=== PATIENT | female | born 1975 | race Caucasian/White ===

== ENCOUNTER 2023-11-04 10:00 | Emergency (ER) | payer BC, SELFPAY ==
[2023-11-04 10:05] VITALS: BP 111/41; PULSE 58; RESP 16; TEMP 36.5; O2SAT 100; BMI 25.8
--- NOTE | 2023-11-04 10:24 | ED_ITS ---
HPI - Abdominal Pain General Chief Complaint: Abdominal Pain Stated Complaint: abd pain Time Seen by Provider: 11/04/23 10:15 Source: patient Mode of arrival: ambulatory Limitations: no limitations History of Present Illness HPI narrative: 47 years old patient presented to the emergency department complaining of left groin pain left lower quadrant pain since yesterday denies any systemic symptoms such as fever vomiting diarrhea. Pain is localized in the left groin MD elicited complaint: abdominal pain Pertinent past history: none Onset (ago): day(s) (1) Pain Consistency: constant Location: other (left groin) Severity: moderate Radiation: LLQ Migration to: no migration Exacerbating factors: nothing Relieving factors: nothing Related Data Allergies Allergy/AdvReac Type Severity Reaction Status Date / Time milk [MILK] AdvReac Unknown HIVES Verified 11/04/23 10:12 morphine [MORPHINE] AdvReac Unknown BURNING Verified 11/04/23 10:12 Review of Systems Eyes: Reports no additional eye complaints Cardiovascular: Reports no additional cardiovascular complaints Respiratory: Reports no additional respiratory complaints Gastrointestinal: Denies diarrhea, Denies nausea and Denies vomiting [facility] Past Medical History [facility] Narrative: Denies any major medical prior Social History Social History Advance Directives: No Advance Directives Information Provided: No Do you have a plan to hurt others: No Plan Physical Exam ED Vital Signs: Vital Signs - 24 hr 11/04/23 10:05 Temperature 97.7 F Pulse Rate 58 Respiratory Rate 16 Blood Pressure 111/41 L Pulse Oximetry 100 Oxygen Delivery Method Room Air BMI result Body Mass Index 25.8 Not toxic appearing comfortable in the stretcher Const General: cooperative Nutritional Appearance: well nourished [facility] Head: Yes normal to inspection Neck Neck: Yes normal visual inspection and Yes full ROM Chest Chest palpation & inspection: normal inspection of the chest Resp Effort & Inspection: normal respiratory effort Auscultation: clear to auscultation bilaterally Cardio Jugular venous distension: no JVD Rate: regular rate Rhythm: regular rhythm GI Inspection: Yes normal to inspection Palpation (GI): Soft to palpation, not firm, nontender and no guarding Skin General skin exam: no rashes or lesions noted Lesions: no lesions Rashes: no rashes Course Reevaluation(s) Reevaluation #1: Patient passed gas and now she is stating she has no more abdominal pain, she is requesting discharge, at this point will discharge the patient home Time: 10:35 Medical Decision Making Medical Decision Making [facility] Narrative: Patient presented with left lower quad abdominal pain left groin pain will obtain labs imaging reassess Differential Diagnosis Differential Diagnoses: The differential diagnosis associated with the presentation includes Differential diagnosis is broad including kidney stone/diverticulitis is/UTI/musculoskeletal pain Admission/Observation Consideration of admission/observation: Escalation of care including admission/observation considered Discharge Plan Discharge Clinical Impression: Abdominal pain Qualifiers: Abdominal location: left lower quadrant Qualified Code(s): R10.32 - Left lower quadrant pain Patient Disposition: Home, Self-Care Instructions: Abdominal Pain (ED) Additional Instructions: You stated that you feeling better and you ready to go home Print Language: Croatian
--- NOTE | 2023-11-04 10:41 | PC.NURSE ---
patent states that she passed gas and feels better, requesting to be d/c
[2023-11-04 10:45] VITALS: BP 97/44; PULSE 55; RESP 18; TEMP 36.3; O2SAT 100
== END 2023-11-04 10:46 | disposition home or self-care (01) ==
PROVIDERS: Emergency Provider Emergency Medicine; PCP Student in an Organized Health Care Education/Training Program
DX: R10.32 Left lower quadrant pain (principal)
CPT/HCPCS: 99282

== ENCOUNTER 2025-01-03 12:01 | Outpatient (REF) | payer BC, SELFPAY ==
[2025-01-03 14:54] LABS: Folate 10.8 ng/mL (> or = 4.0); Vitamin B12 965 pg/mL (200-900)
[2025-01-07 20:08] LABS: Vitamin D 25-OH, D2 <4 ng/mL; Vitamin D 25-OH, D3 57 ng/mL; Vitamin D 25-OH, Total 57 ng/mL (30-100)
== END 2025-01-03 12:02 | disposition home or self-care (01) ==
LOC: HO.LAB 12:01
PROVIDERS: PCP Student in an Organized Health Care Education/Training Program; Visit Provider Nurse Practitioner Family
DX: K59.04 Chronic idiopathic constipation (principal); K58.1 Irritable bowel syndrome with constipation; E55.9 Vitamin D deficiency, unspecified; R19.7 Diarrhea, unspecified; R10.9 Unspecified abdominal pain; Z13.21 Encounter for screening for nutritional disorder; Z79.899 Other long term (current) drug therapy
CPT/HCPCS: 36415; 82306; 82607; 82746; 86364

== ENCOUNTER 2025-01-03 12:01 | Outpatient (AMB) | payer BC, SELFPAY ==
--- OUTSIDE RECORDS SUMMARY | 2022-08-14 10:18 | XMS_ITS | Encounter Summary ---
Author Organization [facility] Address [address] [facility] [address] [place] [id number] Phone Care Team Providers Care Pricing Coordinator Name Role Phone Nikos Elkins MD Primary Care Provider [phone] Encounter Details Date Type Department Care Team (Late st Contact Info) Description 08/14/2022 10:18 AM EDT Hospital Encounter [facility] [address] [place] [id number] Lakshmi Banegas, SENIOR COMPENSATION ANALYST [address] [place] [address] [email or web address] Social History Tobacco Use Types Packs/Day Years Used Date Smoking Tobacco: Never Smokeless Tobacco: Never Education Answer Date Recorded Are you interested in more education? Not on polo e 07/02/2022 Are you concerned about learning? Not on file 07/02/2022 No 07/02/2022 No 07/02/2022 Digital Access Answer Date Recorded No 07/31/2022 No 07/31/2022 Reliable internet access at home? Not on file 07/31/2022 Device with a working camera? Not on file Comments Unknown Sex and Gender Information Value Date Recorded Sex Assigned at Not on file Legal Sex Female 9:26 AM EST Gender Identity Not on file Sexual Orientation Not on file documented as of this encounter Plan of Treatment Not on file documented as of this encounter Procedures Procedure Name Priority Date/Time Associated Diagnosis Comments XR ANKLE 3 OR MORE VIEWS (LEFT) Urgent/patient waiting 08/14/2022 10:31 AM EDT Ankle swelling, left documented in this encounter Results * XR ANKLE 3 OR MORE VIEWS (LEFT) (08/14/2022 10:31 AM EDT) Anatomical Region Laterality Modality Ankle Left Computed Radiogr aphy 08/14/2022 10:5 9 AM EDT Impressions 08/14/2022 11:00 AM EDT FINDINGS/IMPRESSION: There is a minimally displaced comminuted fracture of the distal fibula. There is moderate overlying soft tissue swelling. Normal alignment ankle mortise. Narrative 08/14/2022 11:00 AM EDT XR ANKLE 3 OR MORE VIEWS (LEFT) COMPARISON: None Procedure Note Lisa Pinto MD - 08/14/2022 XR ANKLE 3 OR MORE VIEWS (LEFT) COMPARISON: None IMPRESSION: FINDINGS/IMPRESSION: There is a minimally displaced comminuted fracture of the distal fibula.There is moderate overlying soft tissue swelling. Normal alignment anklemortise. us Lakshmi B Whitehill SENIOR COMPENSATION ANALYST IMG XR LOWER EXTREMITY Rosa l Result documented in this encounter Visit Diagnoses Not on filedocumented in this encounter Care Teams Pricing Coordinator Relationship Specialty Start Date End Date Nikos Elkins MD PCP - General Internal Medicine 08/14/22 documented as of this encounter Additional Source Comments The information contained in this document represents components of the legal health record. It is not the complete legal health record.[facility]
--- NOTE | 2025-01-03 12:04 | A.OFFVIS_ITS ---
Vital Signs 01/03/25 12:06 Height 5 ft 7 in Weight 158 lb 11.725 oz BMI 24.9 BP 89/44 L Blood Pressure Location Lt brachial Position Sitting Pulse 70 Intake Visit Reasons: TELEMEDICINE PHYSICIAN, chronic abd pain + constipation Intake Note: Denis presents in the office as a new patient for constipation and pains in the stomach. CC: States that her colo came back normal - she states that she has acid reflux as well. She states she moved from [place] and needs to find new care. Allergies milk (MILK) Adverse Reaction (Unknown, Verified 01/03/25 12:06) HIVES morphine (MORPHINE) Adverse Reaction (Unknown, Verified 01/03/25 12:06) BURNING Medication List - Last Reconciled 01/03/25 by DAO Rosario bupropion HCl XL 300 mg PO DAILY estradiol 1 mg PO DAILY lamotrigine 200 mg PO DAILY linaclotide (Linzess) 72 mcg PO DAILY omeprazole 40 mg PO DAILY topiramate 50 mg PO BEDTIME valacyclovir 500 mg PO DAILY zolpidem ER 12.5 mg PO BEDTIME PRN HPI HPI TELEMEDICINE PHYSICIAN, chronic abd pain + constipation: Details: 49-year-old female with past medical history of status post sleeve gastrectomy, depression, anxiety, insomnia, IBS with constipation and is here for initial consultation. Patient was sent to us by her PCP. Previously patient was seen by GI specialty. Had colonoscopy that was normal. Patient reports that he is currently taking Linzess 145 mcg. Patient reports that she does not take it every day as sometimes she will have cramping that she describes tightness in her abdomen. Patient also reports abdominal bloating. Currently she reports acid reflux and epigastric discomfort. Patient was started on a new medication. Patient was started on omeprazole daily. Patient denies any dyspepsia, dysp hagia or odynophagia. Denies melena, hematochezia, unintentional weight loss or ribbon like stools. [facility] Medical History (Updated 01/07/25 @ 10:46 by DAO Rosario) Chronic idiopathic constipation Irritable bowel syndrome with constipation Surgical History History of esophagogastroduodenoscopy (EGD) History of colonoscopy Review of Systems Const Denies weight gain and Denies weight loss ENT Reports no additional complaints, Denies dysphagia and Denies odynophagia Card Reports no additional complaints Resp Reports no additional complaints GI Reports abdominal pain, Denies belching, Denies melena, Denies bloating, Denies change in bowel habits, Reports constipation, Reports GI cramping, Denies dysphagia, Denies excessive flatus, Denies dyspepsia, Reports heartburn (Occasional), Denies diarrhea, Denies loose stools, Denies nausea, Denies odynophagia and Denies vomiting Reports no additional complaints Musc Reports no additional complaints Neuro Reports no additional complaints Psych Reports no additional complaints Endo Reports no additional complaints Physical Exam Vital Signs: Last Vital Signs Pulse 70 01/03/25 12:06 BP 89/44 L 01/03/25 12:06 BMI result Body Mass Index 24.9 Const General: healthy appearing, no acute distress and well developed Nutritional Appearance: well nourished Orientation/consciousness: patient oriented x3 Resp Effort & Inspection: normal respiratory effort, able to speak in complete sentences, no tracheal deviation and symmetric chest movement Auscultation: clear to auscultation bilaterally Cardio Rate: regular rate GI Inspection: Yes normal to inspection and No distended Palpation (GI): Soft to palpation, not firm, nontender and No hepatosplenomegaly present Auscultation: normal bowel sounds General: Yes no CVA tenderness Back/Spine/Pelvis Back: no CVA tenderness Skin General skin exam: elasticity normal, turgor normal and dry skin Neuro General: patient oriented x3 Psych Appearance: grossly normal Mental Status: mental status grossly normal Assessment & Plan Assessment & Plan (1) Chronic idiopathic constipation: Code(s): K59.04 - Chronic idiopathic constipation Category: Medical (2) Irritable bowel syndrome with constipation: Code(s): K58.1 - Irritable bowel syndrome with constipation Category: Medical Plan Patient will hold Linzess 145 mcg and she will try to take Linzess 72 mcg daily. Long history of IBS with constipation and CIC since her gastric sleeve. Will check transglutaminase, vitamin B12, folate, vitamin-D level. Patient will continue taking omeprazole daily. Avoid dietary triggers and late night snacking. Staying upright for minimal 3 hours after meals discussed with patient patient will follow-up in the office in 6 months. She will call us if she will have any GI concerning symptoms. Patient is agreeable to this plan and verbalizes understanding of instructions. She was given the opportunity to ask questions and all questions answered. Thank you for allowing me to participate in her care Orders: Orders Vitamin B12 and Folate 01/03/25 R19.7 - Diarrhea, unspecified Transglutaminase IgA 01/03/25 R10.9 - Unspecified abdominal pain Vitamin D 25-OH (D2 and D3) 01/03/25 E55.9 - Vitamin D deficiency, unspecified Medications: New linaclotide (Linzess) 72 mcg PO DAILY 30 caps 2RF Coding Level of Care Code New Pt Level 3 (13192) Diagnoses Chronic idiopathic constipation K59.04 Irritable bowel syndrome with constipation K58.1 Time Spent (min) 40 Comment 30 minutes spent with patient and additional 10 minutes spent reviewing her records
[2025-01-03 12:06] VITALS: BP 89/44; PULSE 70; BMI 24.9
--- OUTSIDE RECORDS SUMMARY | 2025-01-03 13:33 | XMS_ITS | Data Portability ---
Author Organization [place] [facility] Vaishnavi Vasques [place] Address [address] [place] [address] Care Team Providers Care Live In Housekeeper Name Role Phone JEOVANNY SNOWDEN Primary Care Provider Assessment Encounter Date Assessment Date Assessment LastModified by Organization Details LastModified Time 12/23/2022 12/23/2022 Symptomatic left knee osteoarthritis with recent exacerbation. She does have a chronic appearing ACL tear. Chronic degenerative medial meniscus tear. We reviewed the natural history of osteoarthritis. The patient understands that symptoms may progress over time requiring further intervention. We discussed in detail available treatment options. We discussed activity modification, especially avoiding impact type activities. We discussed the need for an ongoing maintenance flexibility and strengthening program. This should involve the core musculature, the hip, as well as the quadriceps and hamstrings. Intermittent icing 20 minutes off 3 to 4 times a day with the skin protected may be helpful for control of swelling. Qwaj-svq-[id number] anti-inflammatory medications with appropriate GI precautions or Tylenol may be helpful in controlling intermittent symptoms of pain. An assistive device such as a cane may be helpful in unloading the joint. We also discussed other interventions including therapeutic injections. We discussed varieties of injections including cortisone, viscosupplementat ion, and PRP. We also discussed the possibility of surgical intervention if symptoms persist. We discussed arthroscopic intervention as well as total knee arthroplasty. We discussed given her significant degree of arthritis she would be a poor surgical candidate for any arthroscopic procedure including a meniscectomy or ACL reconstruction. I think she would benefit from beginning physical therapy. She was given a referral for this today. Additionally she elected proceed with a cortisone injection today. She tolerated this well. Postinjection instructions reviewed. An order was also placed for a medial harness preparer brace and the patient was measured today in office. We will contact her pending authorization approval. Icing protocol reviewed. Advise she can use anti-inflammatori es and/or Tylenol for relief as needed with appropriate over the counter dosing and GI precautions. Questions invited and answered. Patient verbalizes understanding and agreement with plan. Not available 12/30/2022 09:09:53 02/06/2023 02/06/2023 Symptomatic left knee osteoarthritis, advanced medial compartment, with chronic appearing ACL tear and chronic degenerative medial meniscus tear. She was fit in her medial harness preparer brace today, is going to trial this and see how she responds. Advised I continue to recommend physical therapy, she is going to work on setting up an appointment. Venkata protocol reviewed. She can continue pool exercises as tolerated, letting symptoms be her guide. We will see her back in about 4 weeks for repeat evaluation. Questions invited and answered. Patient verbalizes understanding and agreement with plan. PRIOR : Symptomatic left knee osteoarthritis with recent exacerbation. She does have a chronic appearing ACL tear. Chronic degenerative medial meniscus tear. We discussed given her significant degree of arthritis she would be a poor surgical candidate for any arthroscopic procedure including a meniscectomy or ACL reconstruction. I think she would benefit from beginning physical therapy. She was given a referral for this today. Additionally she elected proceed with a cortisone injection today. She tolerated this well. Postinjection instructions reviewed. An order was also placed for a medial harness preparer brace and the patient was measured today in office. We will contact her pending authorization approval. Icing protocol reviewed. Advise she can use anti-inflammatori es and/or Tylenol for relief as needed with appropriate over the counter dosing and GI precautions. Questions invited and answered. Patient verbalizes understanding and agreement with plan. Not available 02/06/2023 14:29:58 03/13/2023 03/13/2023 Symptomatic left knee osteoarthritis. She has a chronic appearing ACL tear and degenerative medial meniscus tear. She is deriving some improvement with the medial harness preparer brace but still symptomatic enough where she needs additional intervention. She has tried a cortisone injection. We will request authorization for viscosupplementat ion. She is a good candidate for this. At her age we are trying to avoid a joint replacement. She will continue with home exercise program. She will make a decision as to whether or not she wants to continue to physical therapy, she admits today that after therapy she is more sore, she has been doing some pool workouts which actually have been feeling better. She may wish to just transition to that. Greater than 20 minutes was spent with the encounter today, including face to face time with the patient, documentation, review of records/imaging if applicable, and coordination of care. PRIOR CATY 02/06/2023: Symptomatic left knee osteoarthritis, advanced medial compartment, with chronic appearing ACL tear and chronic degenerative medial meniscus tear. She was fit in her medial harness preparer brace today, is going to trial this and see how she responds. Advised I continue to recommend physical therapy, she is going to work on setting up an appointment. Icing protocol reviewed. She can continue pool exercises as tolerated, letting symptoms be her guide. We will see her back in about 4 weeks for repeat evaluation. PRIOR : Symptomatic left knee osteoarthritis with recent exacerbation. She does have a chronic appearing ACL tear. Chronic degenerative medial meniscus tear. We discussed given her significant degree of arthritis she would be a poor surgical candidate for any arthroscopic procedure including a meniscectomy or ACL reconstruction. I think she would benefit from beginning physical therapy. She was given a referral for this today. Additionally she elected proceed with a cortisone injection today. She tolerated this well. Postinjection instructions reviewed. An order was also placed for a medial harness preparer brace and the patient was measured today in office. We will contact her pending authorization approval. Icing protocol reviewed. Advise she can use anti-inflammatori es and/or Tylenol for relief as needed with appropriate over the counter dosing and GI precautions. Not available 03/13/2023 14:31:12 04/04/2023 04/04/2023 Symptomatic left knee osteoarthritis in the center of chronic ACL tear and degenerative medial meniscus tear. We proceeded with the Durolane injection today. She tolerated this well. Postinjection instructions reviewed. Icing protocol reviewed. She will continue to use her medial harness preparer brace as needed for comfort and support with activity. She will follow-up on an as-needed basis. Questions invited and answered. Patient verbalizes understanding and agreement with plan. PRIOR : Symptomatic left knee osteoarthritis. She has a chronic appearing ACL tear and degenerative medial meniscus tear. She is deriving some improvement with the medial harness preparer brace but still symptomatic enough where she needs additional intervention. She has tried a cortisone injection. We will request authorization for viscosupplementat lavon. She is a good candidate for this. At her age we are trying to avoid a joint replacement. She will continue with home exercise program. She will make a decision as to whether or not she wants to continue to physical therapy, she admits today that after therapy she is more sore, she has been doing some pool workouts which actually have been feeling better. She may wish to just transition to that. PRIOR CATY 02/06/2023: Symptomatic left knee osteoarthritis, advanced medial compartment, with chronic appearing ACL tear and chronic degenerative medial meniscus tear. She was fit in her medial harness preparer brace today, is going to trial this and see how she responds. Advised I continue to recommend physical therapy, she is going to work on setting up an appointment. Venkata protocol reviewed. She can continue pool exercises as tolerated, letting symptoms be her guide. We will see her back in about 4 weeks for repeat evaluation. PRIOR : Symptomatic left knee osteoarthritis with recent exacerbation. She does have a chronic appearing ACL tear. Chronic degenerative medial meniscus tear. We discussed given her significant degree of arthritis she would be a poor surgical candidate for any arthroscopic procedure including a meniscectomy or ACL reconstruction. I think she would benefit from beginning physical therapy. She was given a referral for this today. Additionally she elected proceed with a cortisone injection today. She tolerated this well. Postinjection instructions reviewed. An order was also placed for a medial harness preparer brace and the patient was measured today in office. We will contact her pending authorization approval. Venkata protocol reviewed. Advise she can use anti-inflammatori es and/or Tylenol for relief as needed with appropriate over the counter dosing and GI precautions. Not available 04/04/2023 14:53:04 Plan of Treatment Reminders Order Date Submit Date Provider Last Modified By Organization Details Last Modified Time Details Appointments None recorded. Lab None recorded. Referral None recorded. Procedures intra-artic ular injection, knee, viscosupple ment (PROC) - Please check insurance for [employer] Author[employer]ati on, insurance preferred med. Knee Laterality: Left 2023 024 [email or web address] Not available 4 14:49:28 Surgeries None recorded. Imaging XR, knee, 4 or more view 2022 023 [email or web address] [facility], [address], [place], [address], 3 17:38:09 Medication Orders Durolane 60 mg/3 mL intra-artic ular syringe 2023 024 [email or web address] [id number], [address] [place], [address], 4 15:46:02 Kenalog 40 mg/mL suspension for injection 2022 023 [id number], [address] [place], [address], 4 14:15:28 lidocaine (PF) 100 mg/5 mL (2 %) injection syringe 2022 023 [id number], [address] [place], [address], 4 14:15:30 Patient TargetsNo targets recorded. Patient InstructionsNo instructions recorded. Reason for Referral None Reported. Problems Name Problem SNOMED Code Status Onset Date Resolution Date Notes Provider Name and Address Organization Details Recorded Time Osteoarthri tis of left knee joint 9774959388183 09 Active 2022 DENNISE MCCANN PA-C [address], [facility] [place], [address], [place] - [facility], P 3 18:35:33 Pain of left knee joint 0755848340984 07 Active 2022 DENNISE MCCANN PA-C [address], [place], [address], [place] [facility], [facility] 3 18:35:33 Complete tear, knee, anterior cruciate ligament 479942134 Active 2023 Tuan Su MD [address], [place], [address], [facility] 4 15:05:02 Problem Notes None recorded. Procedures Surgical History Date Name Laterality Status Provider Name and Address Organization Details Recorded Time 04/04/19 24 Durolane Knee Inj completed DENNISE MCCANN PA-C [address], [place], [address], [place] [facility] 04/04/2023 14:52:22 12/24/19 23 SAB Knee Inj w/US completed DENNISE MCCANN PA-C [address], [place], [address], [facility], P 12/23/2022 17:18:41 Appendectomy completed Hali Galicia [facility], P 12/23/2022 13:30:12 cholecystectomy completed Hali Galicia [facility], P 12/23/2022 13:30:27 Imaging Results None recorded. Procedure Notes None recorded. Medical Equipment None Reported. Allergies Allergen ID Allergen Name Allergen Category Reaction Reaction Severity Criticality Documentation Date Start Date Code Code System Note Provider Name and Address Organization Details Recorded Time 9307 morphine medicatio n Not available Not available Not available 12/23/2022 7052 RxNorm Hali Galicia null, [facility], P 3 13:18:50 Medications Name Sig Start Date Stop Date Status Note LastModified by Organization Details LastModified Time venlafaxine ER 37.5 mg capsule,ext ended release 24 hr TAKE 1 CAPSULE BY MOUTH EVERY DAY 12/23 completed Not Available Not Available Not Available ibuprofen 800 mg tablet TAKE 1 TABLET BY MOUTH THREE TIMES A DAY NEEDED FOR PAIN WC 12/23 completed Not Available Not Available Not Available hydrocodone 5 mg-acetamin ophen 325 mg tablet TAKE 1 TABLET BY MOUTH EVERY 6 HOURS NEEDED FOR SEVERE PAIN 12/23 completed Not Available Not Available Not Available phentermine 15 mg capsule TAKE 1 CAPSULE BY MOUTH ONCE DAILY BEFORE BREAKFAST active Not Available Not Available No t Available tramadol 50 mg tablet TAKE ONE TABLET BY MOUTH ONCE A DAY NEEDED FOR PAIN OR SEVERE PAIN (7-10). 12/23 completed Not Available Not Available Not Available Kenalog 40 mg/mL suspension for injection Take 1.5 mL by injection route. 03/13 completed Not Available Not Available Not Available estradiol 1 mg tablet TAKE 1 TABLET BY MOUTH EVERY DAY active Not Available Not Available No t Available meclizine 25 mg tablet TAKE 1 TABLET BY MOUTH THREE TIMES A DAY NEEDED FOR DIZZINESS 12/23 completed Not Available Not Available Not Available acyclovir 5 % topical ointment 12/23 completed Not Available Not Available Not Available estradiol 0.01% (0.1 mg/gram) vaginal cream 12/23 completed Not Available Not Available Not Available amoxicillin 875 mg-potassiu m clavulanate 125 mg tablet TAKE 1 TABLET BY MOUTH TWICE A DAY FOR 7 DAYS 12/23 completed Not Available Not Available Not Available neomycin-po lymyxin-hyd rocort 3.5 mg-10,000 unit/mL-1 % ear drops,susp ADMINISTE R 3 DROPS INTO THE LEFT EAR 3 (THREE) TIMES A DAY FOR 10 DAYS FOR 7-10 DAYS. 12/23 completed Not Available Not Available Not Available escitalopra m 10 mg tablet TAKE 1 TABLET BY MOUTH EVERY DAY 12/23 completed Not Available Not Available Not Available cyclobenzap rine 5 mg tablet 12/23 completed Not Available Not Available Not Available bupropion HCl XL 300 mg 24 hr tablet, extended release TAKE 1 TABLET BY MOUTH EVERY DAY active Not Available Not Available No t Available zolpidem ER 12.5 mg tablet,exte nded release,mul tiphase TAKE 1 TABLET BY MOUTH EVERY NIGHT AT BEDTIME NEEDED FOR SLEEP active Not Available Not Available No t Available lidocaine (PF) 100 mg/5 mL (2 %) injection syringe Take 3 mL by injection route. 03/13 completed Not Available Not Available Not Available Durolane 60 mg/3 mL intra-artic ular syringe Take 60 mg by intraarti cular route. 2023 active Not Available Not Available Not Avai lable BinaxNOW COVID-19 Ag Self Test kit 12/23 completed Not Available Not Available Not Available Vitals Date Recorded Body height Body mass index (BMI) Body weight Provider Name and Address Organization Details Last Updated DateTime 03/13/2023 170.18 cm 28.3 kg/m2 [address] [place] - [facility], [facility] 03/13/2023 14:15:36 Date Recorded Body height Body mass index (BMI) Body weight Provider Name and Address Organization Details Last Updated DateTime 04/04/2023 170.18 cm 28.2 kg/m2 [address]194.[address] [place] - [facility] 04/04/2023 14:43:50 Date Recorded Body height Body mass index (BMI) Body weight Provider Name and Address Organization Details Last Updated DateTime 12/23/2022 170.18 cm 28.2 kg/m2 95113.63 g Hali Galicia [place] - [facility], [facility] 12/23/2022 13:29:16 Social History None recorded. Functional Status Question Answer Note LastModified by Organizat ion Details LastModified Time Do you use any illicit or recreational drugs? No [email or web address] Information not available 12/23/2022 Do you or have you ever used any other forms of tobacco or nicotine? No [email or web address] Information not available 12/23/2022 What is your level of alcohol consumption? Occasional [email or web address] Information not available 12/23/2022 Mental Status None recorded. Family History Nothing Reported. Medical History No medical history recorded. Gynecological HistoryNo gynecological history recorded. Obstetrics History GPAL:G 0 P 0 0 0 0 Past Encounters Encounter ID Performer Location Encounter Start Date Encounter Closed Date Diagnosis/Indication Diagnosis SNOMED-CT Code Diagnosis ICD10 Code Diagnosis IMO Codes Diagnosis Note [id number] MD JANI Singh [address] [place] [address] [place] [address] 12/23/2022 13:04:23 12/23/2022 14:44:31 Pain of left knee joint [id number] 43686 M25.562 Osteoarthr itis of left knee joint 9413672022 81345 M17.12 [id number] JUAN PABLO SIERRA [address] [place] [address] [address] [place] [address] 02/06/2023 12:57:20 02/06/2023 13:53:41 Osteoarthritis of left knee joint 5873077098 66846 M17.12 Pain of le ft knee joint 0299507797 57597 M25.562 [id number] MD JANI Singh [address] [facility] [address] [place] [address] 03/13/2023 14:09:30 03/13/2023 14:29:39 Osteoarthritis of left knee joint 1009212690 26393 M17.12 Pain of le ft knee joint 3050002850 46081 M25.562 Complete t ear, knee, anterior cruciate ligament 969892123 S83.512D chronic [id number] JUAN PABLO SIERRA [address] [place] [address] [place] [address] 04/04/2023 14:37:19 04/04/2023 14:50:20 Osteoarthritis of left knee joint 1773516296 57046 M17.12 Pain of le ft knee joint 1621705035 83852 M25.562 Complete t ear, knee, anterior cruciate ligament 270752378 S83.512D chronic Health Concerns Section Related Observation LastModified by Organization Detai ls LastModified Time None Recorded Concern Status LastModified by Organization Details LastModified Time None Recorded Advance Directives Directive None Recorded Payers Insurance Date Sequence Insurance Name Policy Number Policy Bales Covered Member ID Bales Member ID Guarantor Name 12/16/2022 1 [place]: [facility] [place] [id number] Denis Hart [id number] Denis Hart 12/16/2022 1 [facility] [facility] [place] [id number] Denis Hart [id number] Denis Hart Notes Date Note Type Note Provider Name and Address Organization Details Recorded Time 3 text/html ROS as noted in the HPI Pleasant, 47-year-old female presents to the office today for evaluation of left knee pain. She reports it began following injury of this year. She reports she tripped over a small cone on the ground and heard a pop followed by immediate pain and loss of swelling throughout her lower extremity. She unfortunately also suffered an ankle fracture about a week which became the focus of her orthopedic care. She reports the knee has been bothersome ever since and notes significant pain, swelling and recurrent instability. She repeatedly expressed her concerns to her previous doctor who ordered an MRI which prompted her visit today. Her biggest concern is instability, notes that the knee feels weak and gives out on her on an almost daily basis. Worse with deep flexion. Swelling has come down a lot but remains persistent. She did have a lower extremity ultrasound to rule out blood clot. She has not done much in the way of treatment, reports intermittent icing and resting. She has not had any physical therapy. Previous injury to this knee many years ago in her childhood. No significant medical history reported. Never smoker. Tuan Su MD [address], [place], [address], [place] [facility] 12/30/2022 09:09:56 3 text/html ROS as noted in the HPI Denis presents to the office today with her for reevaluation of her left knee pain in the setting of advanced arthritis, chronic medial meniscus tear and chronic ACL degeneration. She got about 2 weeks relief with previous cortisone injection. She has been unable to start physical therapy due to scheduling issues. She continues to have persistent pain and swelling, though this has improved since her initial visit. She reports that stairs are especially uncomfortable. She has had recurrence episodes of instability. 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 She has been doing some pool workouts since they do not put any stress on her knee and has been tolerating these okay. Denies radiation of pain outside the knee joint. Denies numbness or tingling. PRIOR:Pleasant, 47-year-old female presents to the office today for evaluation of left knee pain. She reports it began following injury of this year. She reports she tripped over a small cone on the ground and heard a pop followed by immediate pain and loss of swelling throughout her lower extremity. She unfortunately also suffered an ankle fracture about a week which became the focus of her orthopedic care. She reports the knee has been bothersome ever since and notes significant pain, swelling and recurrent instability. She repeatedly expressed her concerns to her previous doctor who ordered an MRI which prompted her visit today. Her biggest concern is instability, notes that the knee feels weak and gives out on her on an almost daily basis. Worse with deep flexion. Swelling has come down a lot but remains persistent. She did have a lower extremity ultrasound to rule out blood clot. She has not done much in the way of treatment, reports intermittent icing and resting. She has not had any physical therapy. Previous injury to this knee many years ago in her childhood. No significant medical history reported. Never smoker. DENNISE MCCANN PA-C [address], [place], [address], [place] [facility] 02/06/2023 14:30:38 4 text/html ROS as noted in the HPI Denis returns for reevaluation of her left knee. She did receive the medial harness preparer brace at the last visit and reports she has been wearing it for the most part. It seems to help when she wears it. She still notes a bit of swelling. Pain is predominantly over the medial knee. She is also had some occasional posterior knee discomfort as well as occasional snapping in physical therapy. She continues in therapy twice a week. She is not sure if the therapy really is helping, sometimes more sore when she leaves treatment. 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 She got about 2 weeks relief with previous cortisone injection. She has been unable to start physical therapy due to scheduling issues. She continues to have persistent pain and swelling, though this has improved since her initial visit. She reports that stairs are especially uncomfortable. She has had recurrence episodes of instability. 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 She has been doing some pool workouts since they do not put any stress on her knee and has been tolerating these okay. Denies radiation of pain outside the knee joint. Denies numbness or tingling.PRIOR:Pleasant, 47-year-old female presents to the office today for evaluation of left knee pain. She reports it began following injury of this year. She reports she tripped over a small cone on the ground and heard a pop followed by immediate pain and loss of swelling throughout her lower extremity. She unfortunately also suffered an ankle fracture about a week which became the focus of her orthopedic care. She reports the knee has been bothersome ever since and notes significant pain, swelling and recurrent instability. She repeatedly expressed her concerns to her previous doctor who ordered an MRI which prompted her visit today. Her biggest concern is instability, notes that the knee feels weak and gives out on her on an almost daily basis. Worse with deep flexion. Swelling has come down a lot but remains persistent. She did have a lower extremity ultrasound to rule out blood clot. She has not done much in the way of treatment, reports intermittent icing and resting. She has not had any physical therapy. Previous injury to this knee many years ago in her childhood. No significant medical history reported. Never smoker. Tuan Su MD [address], [place], [id number], [place] [facility] 03/13/2023 15:05:06 4 text/html ROS as noted in the HPI Patient returns to the office today for follow-up of her left knee. She reports minimal interval change in her symptoms. She is here for viscosupplementation injection and wishes to proceed with this today. She offers no new complaints. Denies any recent swelling, radiation of pain or numbness or tingling. She has been using her medial harness preparer brace for activity which is helpful. PRIOR:Denis returns for reevaluation of her left knee. She did receive the medial harness preparer brace at the last visit and reports she has been wearing it for the most part. It seems to help when she wears it. She still notes a bit of swelling. Pain is predominantly over the medial knee. She is also had some occasional posterior knee discomfort as well as occasional snapping in physical therapy. She continues in therapy twice a week. She is not sure if the therapy really is helping, sometimes more sore when she leaves treatment. 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 She got about 2 weeks relief with previous cortisone injection. She has been unable to start physical therapy due to scheduling issues. She continues to have persistent pain and swelling, though this has improved since her initial visit. She reports that stairs are especially uncomfortable. She has had recurrence episodes of instability. 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 She has been doing some pool workouts since they do not put any stress on her knee and has been tolerating these okay. Denies radiation of pain outside the knee joint. Denies numbness or tingling.PRIOR:Pleasant, 47-year-old female presents to the office today for evaluation of left knee pain. She reports it began following injury of this year. She reports she tripped over a small cone on the ground and heard a pop followed by immediate pain and loss of swelling throughout her lower extremity. She unfortunately also suffered an ankle fracture about a week which became the focus of her orthopedic care. She reports the knee has been bothersome ever since and notes significant pain, swelling and recurrent instability. She repeatedly expressed her concerns to her previous doctor who ordered an MRI which prompted her visit today. Her biggest concern is instability, notes that the knee feels weak and gives out on her on an almost daily basis. Worse with deep flexion. Swelling has come down a lot but remains persistent. She did have a lower extremity ultrasound to rule out blood clot. She has not done much in the way of treatment, reports intermittent icing and resting. She has not had any physical therapy. Previous injury to this knee many years ago in her childhood. No significant medical history reported. Never smoker. DENNISE MCCANN PA-C [address], [place], [id number], [place] - [facility] 04/04/2023 14:53:49 OBGyn Episode No OBEpisode recorded.
--- OUTSIDE RECORDS SUMMARY | 2025-01-03 13:34 | XMS_ITS | Encounter Summary ---
Author Organization [facility] Address [address] [place] [address] Care Team Providers Care Forestry Adviser Name Role Phone Nikos Elkins MD Primary Care Provider +- [phone] Encounter Details Date Type Department Care Team (Late st Contact Info) Description 06/17/2024 Ancillary Orders [facility] Radiology, [facility] (Diag Rad) [address] [place] [address] ProviderGino MD [address] [place] [address] Social History Tobacco Use Types Packs/Day Years Used Date Smoking Tobacco: Never Assessed Comments Unknown Sex and Gender Information Value Date Recorded Sex Assigned at Not on file Legal Sex Female 2:10 PM EST Gender Identity Not on file Sexual Orientation Not on file documented as of this encounter Plan of Treatment Not on file documented as of this encounter Results * MG TRANSFER OF OUTSIDE FILMS (2021 12:00 AM EDT) Narrative IMAGING - 06/17/2024 7:35 AM EDT This order has been auto-finalized and does not contain a result. us Gino Provider MD [facility] Final Resu lt IMAGING documented in this encounter Visit Diagnoses Not on filedocumented in this encounter Care Teams Forestry Adviser Relationship Specialty Start Date End Date Nikos Elkins MD [facility] [address] [place] [id number] PCP - General 03/11/19 documented as of this encounter
--- OUTSIDE RECORDS SUMMARY | 2025-01-03 13:34 | XMS_ITS ---
Author Name [facility] Organization Unknown Results Test Name/Text Value Interpretation Date Range Source Citation Ref Lab Test The technical components of this case were performed at [facility], [address] [place] [address], CLIA ID Number-[id number] 1 12/04/2024 [facility] HBV surface Ab Ser Ql IA Positive Abnormal 10/09/2024 - [facility] HBV surface Ab SerPl IA-aCnc 26.2 mIU/mL 10/09/2024 [facility] Est. average glucose Bld gHb Est-mCnc 105.0 mg/dL 10/08/2024 [facility] HbA1c MFr Bld 5.3 % 10/08/2024 - 5.7 [facility] Creat SerPl-mCnc 0.88 mg/dL 10/08/2024 0.55 - 1.02 [facility] AST SerPl-cCnc 25.0 unit/L 10/08/2024 - 34 CT [facility] Anion Gap SerPl Calc-sCnc 9.0 10/08/2024 5 - 14 [facility] Calcium SerPl-mCnc 9.0 mg/dL 10/08/2024 8.7 - 10.4 [facility] Potassium SerPl-sCnc 4.4 mmol/L 10/08/2024 3.5 - 5.1 [facility] Sodium SerPl-sCnc 142.0 mmol/L 10/08/2024 136 - 14 5 [facility] BUN SerPl-mCnc 13.0 mg/dL 10/08/2024 9 - 23 [facility] BUN/Creat SerPl 14.8 10/08/2024 12 - 20 [facility] Globulin Ser Calc-mCnc 2.0 g/dL Below low normal 10/08/2024 2.3 - 3.5 [facility] ALP SerPl-cCnc 56.0 unit/L 10/08/2024 46 - 116 [facility] Albumin SerPl-mCnc 4.4 g/dL 10/08/2024 3.2 - 4.8 [facility] eGFRcr SerPlBld CKD-EPI 2020 81.0 mL/min/1.73m2 10/08/2024 - [facility] CO2 SerPl-sCnc 28.0 mmol/L 10/08/2024 20 - 31 CT [facility] Chloride SerPl-sCnc 105.0 mmol/L 10/08/2024 98 - 1 07 [facility] ALT SerPl-cCnc 28.0 unit/L 10/08/2024 10 - 49 [facility] Albumin/Glob SerPl 2.2 Above high normal 10/08/2024 1 - 1.7 [facility] Bilirub SerPl-mCnc 0.4 mg/dL 10/08/2024 0.2 - 1.1 [facility] Prot SerPl-mCnc 6.4 g/dL 10/08/2024 5.7 - 8.2 [facility] Glucose SerPl-mCnc 67.0 mg/dL Below low normal 10/08/2024 70 - 199 [facility] HIV 1+2 Ab+HIV1 p24 Ag SerPl Ql IA Negative 10/08/2024 - [facility] HDLc SerPl-mCnc 63.0 mg/dL 10/08/2024 60 - CT [facility] NonHDLc SerPl-mCnc 106.0 mg/dL 10/08/2024 [facility] LDLc SerPl Calc-mCnc 87.0 mg/dL 10/08/2024 0 - 99 [facility] Cholest SerPl-mCnc 169.0 mg/dL 10/08/2024 25 - 200 [facility] Cholest/HDLc SerPl 2.7 10/08/2024 [facility] VLDLc SerPl Calc-mCnc 19.2 mg/dL 10/08/2024 [facility] Trigl SerPl-mCnc 96.0 mg/dL 10/08/2024 - C [facility] TSH SerPl DL<=0.005 mIU/L-aCnc 0.89 mcIU/mL 10/08/2024 0.55 - 4.78 [facility] Basophils NFr Bld Auto 1.1 % 10/08/2024 0 - 2 [facility] PMV Bld Auto 11.0 FL 10/08/2024 8.3 - 11.8 [facility] Hct VFr Bld Auto 37.2 % 10/08/2024 37 - 47 CT [facility] Basophils # Bld Auto 0.07 K/mcL 10/08/2024 0 - 0.2 [facility] WBC # Bld Auto 6.6 K/mcL 10/08/2024 4 - 10.5 [facility] Monocytes NFr Bld Auto 7.5 % 10/08/2024 2 - 12 [facility] Monocytes # Bld Auto 0.5 K/mcL 10/08/2024 0.1 - 1.2 [facility] RBC Auto 94.2 FL 10/08/2024 78 - 100 [facility] nRBC Bld-Rto 0.0 % 10/08/2024 0 - 1 [facility] RBC # Bld Auto 3.95 M/mcL Below low normal 10/08/2024 4.2 - 5.4 [facility] Lymphocytes NFr Bld Auto 33.3 % 10/08/2024 20 - 48 [facility] Neutrophils # Bld Auto 3.72 K/mcL 10/08/2024 1.5 - 7 [facility] Imm Granulocytes NFr Bld Auto 0.6 % 10/08/2024 0 - 1 [facility] Hgb Bld-mCnc 12.2 g/dL Below low normal 10/08/2024 12.5 - 16 [facility] MCH RBC Qn Auto 30.9 pcg 10/08/2024 27 - 31 [facility] MCHC RBC Auto-EntMCnc 32.8 g/dL 10/08/2024 32 - 36 [facility] Lymphocytes # Bld Auto 2.21 K/mcL 10/08/2024 1 - 5 [facility] Eosinophil # Bld Auto 0.09 K/mcL 10/08/2024 0 - 0.6 [facility] RDW RBC Auto 12.7 % 10/08/2024 11.5 - 14 [facility] Neutrophils NFr Bld Auto 56.1 % 10/08/2024 25 - 62 [facility] Platelet # Bld Auto 231.0 K/mcL 10/08/2024 150 - 4 50 [facility] Imm Granulocytes # Bld Auto 0.04 K/mcL 10/08/2024 - 0.1 [facility] Eosinophil NFr Bld Auto 1.4 % 10/08/2024 0 - 6 [facility] History of Medication Use Medication Directions Dispensed Refills Start Date End Date Status lactated Ringer's infusion 50 mL/hr, intravenous, Continuous, Starting on Mon12/02/24 at 1200, Preprocedure 5 active zolpidem CR (AMBIEN CR) 12.5 mg CR tablet TAKE 1 TABLET BY MOUTH EVERY NIGHT AT BEDTIME NEEDED FOR SLEEP 5 active topiramate (TOPAMAX) 50 mg tablet TAKE 1 TABLET BY MOUTH EVERYDAY AT BEDTIME 5 active topiramate 25 mg tablet Take 1 tablet every day by oral route. 5 active linaCLOtide (Linzess) 145 mcg capsule Take 1 capsule (145 mcg total) by mouth 1 (one) time each day. 5 active linaCLOtide (Linzess) 145 mcg capsule Take 1 capsule (145 mcg total) by mouth 1 (one) time each day. 5 active buPROPion XL (WELLBUTRIN XL) 300 mg 24 hr tablet TAKE 1 TABLET BY MOUTH EVERY DAY 5 active buPROPion XL (WELLBUTRIN XL) 300 mg 24 hr tablet TAKE 1 TABLET BY MOUTH EVERY DAY 5 active zolpidem CR (AMBIEN CR) 12.5 mg CR tablet TAKE 1 TABLET BY MOUTH EVERY NIGHT AT BEDTIME NEEDED FOR SLEEP 5 active estradiol 1 mg tablet Take 1 tablet ever y day by oral route. 4 active topiramate (TOPAMAX) 50 mg tablet Take 1 tablet (50 mg total) by mouth at bedtime. 4 active lamoTRIgine (LaMICtal) 200 MG tablet Take 1 tablet (200 mg total) by mouth daily. 4 active lamoTRIgine (LaMICtal) 200 MG tablet Take 1 tablet (200 mg total) by mouth daily. 4 active topiramate (TOPAMAX) 50 MG tablet 50mg tablet at night and 25mg tablet in the morning 4 active topiramate (TOPAMAX) 50 MG tablet 50mg tablet at night and 25mg tablet in the morning 4 active buPROPion (WELLBUTRIN XL) 300 MG 24 hr tablet TAKE 1 TABLET BY MOUTH EVERY DAY 4 active topiramate (TOPAMAX) 50 MG tablet Take 1 tablet (50 mg total) by mouth every night at bedtime. 4 active Durolane 60 mg/3 mL intra-articular syringe Take 60 mg by intraarticular route. 4 active topiramate (TOPAMAX) 25 MG capsule Take 1 capsule (25 mg total) by mouth every night at bedtime for 7 days, THEN 2 capsules (50 mg total) every night at bedtime for 23 days. 4 05/04/19 24 active zolpidem (AMBIEN CR) 12.5 MG CR tablet TAKE 1 TABLET BY MOUTH EVERY NIGHT AT BEDTIME NEEDED FOR SLEEP 4 active Kenalog 40 mg/mL suspension for injection Take 1.5 mL by injection route. 3 03/13/19 24 completed lidocaine (PF) 100 mg/5 mL (2 %) injection syringe Take 3 mL by injection route. 3 03/13/19 24 completed buPROPion (WELLBUTRIN XL) 300 MG 24 hr tablet TAKE 1 TABLET BY MOUTH EVERY DAY 3 active traMADol (ULTRAM) 50 MG tablet Take 50 mg by mouth daily as needed for pain or severe pain (7-10). 3 04/03/19 24 aborted venlafaxine (EFFEXOR-XR) 37.5 MG 24 hr capsule Take 1 capsule (37.5 mg total) by mouth daily. 3 04/03/19 24 aborted cyclobenzaprine (FLEXERIL) 5 MG tablet TAKE 1 TABLET BY MOUTH TWICE A DAY NEEDED 3 08/28/19 24 aborted cyclobenzaprine (FLEXERIL) 5 mg tablet Take 1 tablet (5 mg total) by mouth 2 (two) times a day if needed. 3 active cyclobenzaprine (FLEXERIL) 5 mg tablet Take 1 tablet (5 mg total) by mouth 2 (two) times a day if needed. 3 active acyclovir (ZOVIRAX) 5 % ointment Apply topically 3 (three) times a day. To cold sore on lips 3 active acyclovir (ZOVIRAX) 5 % ointment Apply topically 3 (three) times a day. To cold sore on lips 3 active acyclovir (ZOVIRAX) 5 % ointment APPLY TOPICALLY 3 TIMES A DAY TO COLD SORE ON LIPS 3 active acyclovir (ZOVIRAX) 5 % ointment APPLY TOPICALLY 3 TIMES A DAY TO COLD SORE ON LIPS 3 active Addyi 100 mg tablet Take 1 tablet every day by oral route. 2 02/02/20 23 completed ibuprofen (ADVIL,MOTRIN) 800 mg tablet Take 1 tablet (800 mg total) by mouth. 1 active ibuprofen (ADVIL,MOTRIN) 800 mg tablet Take 1 tablet (800 mg total) by mouth. 1 active ibuprofen 800 MG tablet 1 active ibuprofen 800 MG tablet 1 active Anusol-HC 2.5 % topical cream with perineal applicator APPLY A THIN LAYER TO THE AFFECTED AREA(S) BY TOPICAL ROUTE 2-4 TIMESDAILY 9 08/09/19 20 completed Tucks (witch chani) 50 % topical pads Apply 1 pad by topical route. 9 08/09/19 20 completed Cipro 500 mg tablet TAKE 1 TABLET (500MG) BY ORAL ROUTE EVERY 12 HOURS 2 11/01/19 12 completed Divigel 0.25 mg/0.25 gram (0.1 %) transdermal gel packet APPLY 1 PACKET BY TOPICAL ROUTE EVERY DAY TO UPPER THIGH 1 01/29/20 11 completed Vivelle-Dot 0.075 mg/24 hr transdermal patch APPLY 1 PATCH BY TRANSDERMAL ROUTE 2 TIMES EVERY WEEK 0 09/29/19 11 completed Nexium 20 mg capsule,delayed release TAKE 1 CAPSULE (20MG) BY ORAL ROUTE EVERY DAY 8 09/29/19 11 completed Cleocin 2 % vaginal cream PLACE 1 BY VAGINAL ROUTE EVERY DAY FOR 7 DAYS 8 01/09/20 08 completed acyclovir 5 % topical ointment APPLY TOPICALLY 4X A DAY TO AFFECTED AREAS NEEDED UNTIL RESOLVED. 02/06/20 24 completed azelastine 137 mcg (0.1 %) nasal spray INSTILL 2 SPRAYS IN EACH NOSTRIL TWICE A DAY 02/06/20 24 completed estradiol 0.01% (0.1 mg/gram) vaginal cream INSERT (1G) BY VAGINAL ROUTE 7 TIMES EVERY WEEK X 2 WEEKS 02/06/20 24 completed lamotrigine 100 mg tablet TAKE 1 TABLET BY MOUTH EVERY DAY 02/06/20 24 completed lamotrigine 25 mg tablet TAKE 1 TABLET BY MOUTH ONCE A DAY X 2 WEEKS THEN 2 TABLETS DAILY 02/06/20 24 completed topiramate 25 mg sprinkle capsule PLEASE SEE ATTACHED FOR DETAILED DIRECTIONS 02/06/20 24 completed Ambien 02/02/20 23 active amoxicillin 875 mg-potassium clavulanate 125 mg tablet TAKE 1 TABLET BY MOUTH TWICE A DAY FOR 7 DAYS 02/02/20 23 completed cyclobenzaprine 5 mg tablet TAKE 1 TABLET BY MOUTH THREE TIMES A DAY 02/02/20 23 completed cyclobenzaprine 7.5 mg tablet 02/02/20 23 completed escitalopram 10 mg tablet TAKE 1 TABLET BY MOUTH EVERY DAY 02/02/20 23 completed famotidine 40 mg tablet TAKE 1 TABLET BY MOUTH EVERY DAY IN THE EVENING 02/02/20 23 completed hydrocodone 5 mg-acetaminophen 325 mg tablet TAKE 1 TABLET BY MOUTH EVERY 6 HOURS NEEDED FOR SEVERE PAIN 02/02/20 23 completed ibuprofen 800 mg tablet TAKE 1 TABLET BY MOUTH THREE TIMES A DAY NEEDED FOR PAIN WC 02/02/20 completed meclizine 25 mg tablet TAKE 1 TABLET BY MOUTH THREE TIMES A DAY NEEDED FOR DIZZINESS 02/02/20 completed louklgur-lkxsmrdti-gs drocort 3.5 mg-10,000 unit/mL-1 % ear drops,susp ADMINISTER 3 DROPS INTO THE LEFT EAR 3 (THREE) TIMES A DAY FOR 10 DAYS FOR 7-10 DAYS. 02/02/20 completed tramadol 50 mg tablet TAKE ONE TABLET BY MOUTH ONCE A DAY NEEDED FOR PAIN OR SEVERE PAIN (7-10). 02/02/20 completed valacyclovir 1 gram tablet TKAE 2 TABLETS BY MOUTH EVERY 12 HOURS FOR 1 DAY AT FIRST SIGN OF OUTBREAK 02/02/20 completed venlafaxine ER 37.5 mg capsule,extended release 24 hr TAKE 1 CAPSULE BY MOUTH EVERY DAY 02/02/20 completed acyclovir 5 % topical ointment 12/24/19 completed amoxicillin 875 mg-potassium clavulanate 125 mg tablet TAKE 1 TABLET BY MOUTH TWICE A DAY FOR 7 DAYS 12/24/19 completed BinaxNOW COVID-19 Ag Self Test kit 12/24/19 completed cyclobenzaprine 5 mg tablet 12/24/19 completed escitalopram 10 mg tablet TAKE 1 TABLET BY MOUTH EVERY DAY 12/24/19 completed estradiol 0.01% (0.1 mg/gram) vaginal cream 12/24/19 completed hydrocodone 5 mg-acetaminophen 325 mg tablet TAKE 1 TABLET BY MOUTH EVERY 6 HOURS NEEDED FOR SEVERE PAIN 12/24/19 completed ibuprofen 800 mg tablet TAKE 1 TABLET BY MOUTH THREE TIMES A DAY NEEDED FOR PAIN WC 12/24/19 completed meclizine 25 mg tablet TAKE 1 TABLET BY MOUTH THREE TIMES A DAY NEEDED FOR DIZZINESS 12/24/19 completed dmvxbaay-mlgxveqlo-wz drocort 3.5 mg-10,000 unit/mL-1 % ear drops,susp ADMINISTER 3 DROPS INTO THE LEFT EAR 3 (THREE) TIMES A DAY FOR 10 DAYS FOR 7-10 DAYS. 12/24/19 completed phentermine 15 mg capsule TAKE 1 CAPSULE BY MOUTH ONCE DAILY BEFORE BREAKFAST 12/24/19 active tramadol 50 mg tablet TAKE ONE TABLET BY MOUTH ONCE A DAY NEEDED FOR PAIN OR SEVERE PAIN (7-10). 10/20/20 23 completed venlafaxine ER 37.5 mg capsule,extended release 24 hr TAKE 1 CAPSULE BY MOUTH EVERY DAY 12/24/19 23 completed azithromycin 250 mg tablet TAKE 2 TABLETS BY MOUTH TODAY, THEN TAKE 1 TABLET DAILY FOR 4 DAYS 11/10/19 22 completed ivermectin 1 % topical cream 11/10/19 22 completed mupirocin 2 % topical ointment 11/10/19 22 completed phentermine 30 mg capsule TAKE 1 CAPSULE BY MOUTH ONCE DAILY BEFORE BREAKFAST 11/10/19 22 completed Premarin 0.625 mg tablet TAKE 1 TABLET BY MOUTH EVERY DAY 11/10/19 22 completed bupropion HCl XL 150 mg 24 hr tablet, extended release TAKE 1 TABLET BY MOUTH EVERY DAY 08/13/19 21 completed cephalexin 500 mg capsule TAKE 1 CAPSULE BY MOUTH TWICE A DAY START DAY BEFORE SURGERY 08/13/19 21 completed desvenlafaxine succinate ER 100 mg tablet,extended release 24 hr TAKE 100 MG BY MOUTH DAILY. 08/13/19 21 completed desvenlafaxine succinate ER 25 mg tablet,extended release 24 hr TAKE 1 TABLET BY MOUTH EVERY DAY 08/13/19 21 completed desvenlafaxine succinate ER 50 mg tablet,extended release 24 hr TAKE 1 TABLET BY MOUTH DAILY 08/13/19 21 completed diclofenac 1 % topical gel 1 APPLICATION APPLY ON THE SKIN TWICE A DAY FOOT 08/13/19 21 completed doxycycline hyclate 100 mg capsule 08/13/19 21 completed omeprazole 40 mg capsule,delayed release TAKE 1 CAPSULE BY MOUTH EVERY DAY 08/13/19 21 completed pantoprazole 40 mg tablet,delayed release TAKE 1 TABLET BY MOUTH EVERY DAY 08/13/19 21 completed phentermine 37.5 mg tablet TAKE 1 TABLET BY MOUTH EVERY MORNING BEFORE BREAKFAST 08/13/19 21 completed Amitiza 24 mcg capsule 08/09/19 20 completed carbamazepine ER 100 mg tablet,extended release,12 hr 08/09/19 20 completed Linzess 72 mcg capsule 08/09/19 20 completed naproxen 500 mg tablet 08/09/19 20 completed ondansetron 4 mg disintegrating tablet 20 completed oxybutynin chloride ER 5 mg tablet,extended release 24 hr 08/09/19 20 completed tizanidine 4 mg tablet 08/09/19 20 completed trazodone 50 mg tablet 08/09/19 20 completed zolpidem 5 mg tablet 08/09/19 20 completed amoxicillin 500 mg capsule 06/02/19 19 completed clindamycin 1 % lotion 06/02/19 19 completed clotrimazole-betameth asone 1 %-0.05 % topical cream APPLY TO THE AFFECTED AND SURROUNDING AREAS OF SKIN BY TOPICAL ROUTE 2 TIMES PER DAY IN THE MORNING AND EVENING FOR 2 WEEKS 06/02/19 19 completed Evamist 1.53 mg/spray (1.7 %) transdermal spray USE 2 SPRAY (1.53MG) BY TOPICAL ROUTE EVERY DAY TO FOREARM 06/02/19 19 completed Linzess 290 mcg capsule 06/02/19 19 completed methocarbamol 750 mg tablet 06/02/19 19 completed Nexium 06/02/19 19 completed erythromycin 5 mg/gram (0.5 %) eye ointment 04/25/19 18 completed hydrocodone 10 mg-acetaminophen 325 mg tablet 04/25/19 18 completed metaxalone 800 mg tablet 04/25/19 18 completed metronidazole 1 % topical gel 04/25/19 18 completed ondansetron HCl 4 mg tablet 04/25/19 18 completed sulfamethoxazole 800 mg-trimethoprim 160 mg tablet 04/25/19 18 completed diazepam 5 mg tablet 02/05/20 16 completed doxycycline hyclate 100 mg tablet 02/05/20 16 completed fluconazole 150 mg tablet Take one tablet by oral route. 02/05/20 16 completed hydrocodone 5 mg-acetaminophen 300 mg tablet 02/05/20 16 completed lidocaine 5 % topical patch 02/05/20 16 completed metronidazole 0.75 % (37.5 mg/5 gram) vaginal gel Insert 1 applicatorful every day by vaginal route for 5 days. 02/05/20 16 completed oxycodone 5 mg tablet 02/05/20 16 completed prednisone 10 mg tablet 02/05/20 16 completed tizanidine 2 mg capsule 02/05/20 16 completed triamcinolone acetonide 0.1 % topical cream 02/05/20 16 completed zolpidem 10 mg tablet 02/05/20 16 completed Asmanex Twisthaler 220 mcg/actuation(30 doses) breath activated inhalr 12/27/19 15 completed hydromorphone 2 mg tablet 12/27/19 15 completed omeprazole 20 mg capsule,delayed release 12/27/19 15 completed Kenalog 40 mg/mL suspension for injection active topiramate 25 mg tablet active estradiol 1 mg tablet active lidocaine (PF) 100 mg/5 mL (2 %) injection syringe active acyclovir 5 % topical ointment APPLY TOPICALLY 4X A DAY TO AFFECTED AREAS NEEDED UNTIL RESOLVED. active Ambien CR 12.5 mg tablet,extended release Take 1 tablet every day by oral route. active bupropion HCl XL 300 mg 24 hr tablet, extended release TAKE 1 TABLET BY MOUTH EVERY DAY active bupropion HCl XL 300 mg 24 hr tablet, extended release TAKE 1 TABLET BY MOUTH EVERY DAY active bupropion HCl XL 300 mg 24 hr tablet, extended release TAKE 1 TABLET BY MOUTH EVERY DAY active buspirone 5 mg tablet TAKE 1 TABLET BY MOUTH TWICE A DAY active cyclobenzaprine 5 mg tablet TAKE 1-2 TABLET BY MOUTH EVERY NIGHT AT BEDTIME NEEDED FOR PAIN active esomeprazole magnesium 40 mg capsule,delayed release TAKE 1 CAPSULE (40 MG TOTAL) BY MOUTH EVERY MORNING BEFORE BREAKFAST FOR 30 DAYS. active estradiol 1mg active estradiol 1 mg tablet TAKE 1 TABLET BY MOUTH EVERY DAY active estradiol 1 mg tablet TAKE 1 TABLET BY MOUTH EVERY DAY active hydroxyzine HCl 25 mg tablet TAKE 1 TABLET BY MOUTH ONCE A DAY NEEDED ANXIETY active ibuprofen 800 mg tablet TAKE 1 TABLET BY MOUTH THREE TIMES A DAY active lamotrigine 100 mg tablet TAKE 1 TABLET BY MOUTH EVERY DAY active lamotrigine 200 mg tablet Take 1 tablet twice a day by oral route. active lamotrigine 200 mg tablet TAKE 1 TABLET BY MOUTH EVERY DAY active Linzess 145 mcg capsule Take 1 capsule every day by oral route. active phentermine 15 mg capsule TAKE 1 CAPSULE BY MOUTH ONCE DAILY BEFORE BREAKFAST active topiramate 50 mg tablet TAKE 1 TABLET BY MOUTH EVERYDAY AT BEDTIME active topiramate 50 mg tablet TAKE 1 TABLET BY MOUTH EVERYDAY AT BEDTIME active valacyclovir 500 mg tablet TAKE 1 TABLET BY MOUTH EVERY DAY active valacyclovir 500 mg tablet Take 1 tablet every day by oral route. active Wellbutrin XL 300 mg 24 hr tablet, extended release Take 1 tablet every day by oral route. active zolpidem ER 12.5 mg tablet,extended release,multiphase TAKE 1 TABLET BY MOUTH EVERY NIGHT AT BEDTIME NEEDED FOR SLEEP active zolpidem ER 12.5 mg tablet,extended release,multiphase TAKE 1 TABLET BY MOUTH EVERY NIGHT AT BEDTIME NEEDED FOR SLEEP active zolpidem ER 12.5 mg tablet,extended release,multiphase TAKE 1 TABLET BY MOUTH EVERY NIGHT AT BEDTIME NEEDED FOR SLEEP active None recorded. (No additional sig information) completed Addyi 100 mg tablet Take 1 tablet every day by oral route. Take 1 tablet every day by oral route. completed azelastine 137 mcg (0.1 %) nasal spray aerosol INSTILL 2 SPRAYS IN EACH NOSTRIL TWICE A DAY INSTILL 2 SPRAYS IN EACH NOSTRIL TWICE A DAY completed bupropion HCl XL 300 mg 24 hr tablet, extended release TAKE 1 TABLET BY MOUTH EVERY DAY TAKE 1 TABLET BY MOUTH EVERY DAY completed cyclobenzaprine 7.5 mg tablet cyclobenzaprine 7.5 mg tablet completed DAILY MULTI-VITAMIN ORAL Take by mouth. active DAILY MULTI-VITAMIN ORAL Take by mouth. active escitalopram 10 mg tablet TAKE 1 TABLET BY MOUTH EVERY DAY TAKE 1 TABLET BY MOUTH EVERY DAY completed esomeprazole magnesium 40 mg capsule,delayed release TAKE 1 CAPSULE (40 MG TOTAL) BY MOUTH EVERY MORNING BEFORE BREAKFAST FOR 30 DAYS. TAKE 1 CAPSULE (40 MG TOTAL) BY MOUTH EVERY MORNING BEFORE BREAKFAST FOR 30 DAYS. completed estradiol (ESTRACE) 1 MG tablet daily. active estradiol (ESTRACE) 1 MG tablet daily. active estradioL (ESTRACE) 1 mg tablet Take 1 tablet (1 mg total) by mouth 1 (one) time each day. active estradioL (ESTRACE) 1 mg tablet Take 1 tablet (1 mg total) by mouth 1 (one) time each day. active estradiol 0.01% (0.1 mg/gram) vaginal cream INSERT (1G) BY VAGINAL ROUTE 7 TIMES EVERY WEEK X 2 WEEKS INSERT (1G) BY VAGINAL ROUTE 7 TIMES EVERY WEEK X 2 WEEKS completed estradiol 1 mg tablet Take 1 tablet every day by oral route. Take 1 tablet every day by oral route. completed famotidine 40 mg tablet TAKE 1 TABLET BY MOUTH EVERY DAY IN THE EVENING TAKE 1 TABLET BY MOUTH EVERY DAY IN THE EVENING completed ibuprofen 800 mg tablet ibuprofen 800 mg tablet completed Multiple Vitamin (MULTIVITAMIN ADULT PO) Take by mouth. active Multiple Vitamin (MULTIVITAMIN ADULT PO) Take by mouth. active valacyclovir 1 gram tablet TKAE 2 TABLETS BY MOUTH EVERY 12 HOURS FOR 1 DAY AT FIRST SIGN OF OUTBREAK TKAE 2 TABLETS BY MOUTH EVERY 12 HOURS FOR 1 DAY AT FIRST SIGN OF OUTBREAK completed valacyclovir 500 mg tablet TAKE 1 TABLET BY MOUTH EVERY DAY TAKE 1 TABLET BY MOUTH EVERY DAY completed Allergies Allergen Reaction Severity Comment Documented Date Source Statu s OTHER 05/12/2023 [facility] active POVIDONE IODINE RASH 08/10/2016 [facility] activ e POVIDONE-IODINE RASH 08/10/2016 [facility] ac tive MORPHINE VOMITING [facility]ON[facility] active Problems Problem Status Onset Date Problem Type Date of Resolution Source Episodic migraine active 2022-08-12 ProblemAct [facility] Special screening for malignant neoplasms, colon active 2024-12-02 ProblemAct [facility] Primary insomnia active 2019-02-22 ProblemAct [facility] Anxiety active 2019-02-22 ProblemAct [facility] Depression, major, recurrent, in remission (CMS/HCC V24) active 2019-02-22 ProblemAct [facility] Bariatric surgery status active EncounterDiagnosisAct [facility] Gastroesophageal reflux disease active 2017-09-20 ProblemAct [facility] Benign paroxysmal positional vertigo active 2022-08-12 ProblemAct [facility] History of sleeve gastrectomy active 2024-05-22 ProblemAct [facility] History of sleeve gastrectomy active 2023-08-28 ProblemAct [facility] Migraine without aura and without status migrainosus, not intractable active 2023-05-29 ProblemAct [facility] Iron deficiency anemia, unspecified iron deficiency anemia type active EncounterDiagnosisAct [facility] Encounter for screening for malignant neoplasm of colon active EncounterDiagnosisAct [facility] Dense breasts, unspecified active EncounterDiagnosisAct [facility] Constipation active 2024-06-14 ProblemAct [facility] Mixed anxiety and depressive disorder active 2024-06-14 ProblemAct [facility] Endocrine/metabolic screening active 2024-05-21 ProblemAct [facility] Hyperlipidemia active 2024-06-14 ProblemAct [facility] Obesity active 2024-05-30 ProblemAct [facility] Migraine active 2024-06-14 ProblemAct [facility] Vaginitis active ProblemAct [facility] Pain of left knee joint active 2023-02-05 ProblemAct [facility] Osteoarthritis of left knee joint active 2023-02-05 ProblemAct [facility] Complete tear, knee, anterior cruciate ligament active 2023-03-13 ProblemAct [facility] Immunizations Vaccine Date Source Lot Number Status Tdap Tetanus diptheria acell ular pertussis (Boostrix; Adacel) 7yo and older 10/08/2024 [facility] [id number] completed Tdap Tetanus diptheria acell ular pertussis (Boostrix; Adacel) 7yo and older 10/08/2024 [facility] [id number] completed Tdap Tetanus diptheria acell ular pertussis (Boostrix; Adacel) 7yo and older [facility]/08[facility]20[id number] Influenza Quadravalent, 0.5m l (Fluzone High-dose) 65yo and older 02/22/2021 [facility] comple david Influenza Quadravalent, 0.5m l (Fluzone High-dose) 65yo and older 02/22/2021 [facility] comple david Influenza Quadravalent, 0.5m l (Fluzone High-dose) 65yo and older 02/22/2021 [facility] comple david Covid-19 (Pfizer) Dilution Required 01/27/2021 [facility] [id number] completed Influenza trivalent, with pr eservative (Fluzone; Afluria) 6mo and older 12/26/2020 [facility] completed Influenza trivalent, with pr eservative (Fluzone; Afluria) 6mo and older 12/26/2020 [facility] completed Influenza trivalent, with pr eservative (Fluzone; Afluria) 6mo and older 12/26/2020 [facility] completed Covid-19 (Moderna 12+) 100mcg/0.5mL dosage 04/15/2020 [facility] [id number] completed Covid-19 (Moderna 12+) 100mcg/0.5mL dosage 03/18/2020 [facility] [id number] completed Encounters Encounter Type Encounter Reason Primary Diagnosis Location Date Ambulatory [facility] 12/25/2024 [facility] 12/11/2024 Ambulatory Encounter for screening for malignant neoplasm of colon Encounter for screening for malignant neoplasm of colon [facility] 12/02/2024 Ambulatory [facility] 11/05/2024 Ambulatory [facility] 10/15/2024 Ambulatory [facility] 10/15/2024 Ambulatory Dense breasts, unspecified Dense breasts, unspecified [facility] 10/08/2024 Ambulatory Encounter for general adult medical examination without abnormal findings Encounter for general adult medical examination without abnormal findings [facility] 10/08/2024 Ambulatory Annual Exam Encounter for general adult medical examination without abnormal findings [facility] 10/08/2024 Ambulatory Encounter for screening mammogram for malignant neoplasm of breast Encounter for screening mammogram for malignant neoplasm of breast [facility] 07/22/2024 [facility] 06/18/19 25 [facility] 06/18/19 25 [facility] 06/18/19 25 [facility] 06/18/19 25 [facility] 06/18/19 25 Ambulatory [facility] 06/14/2024 Ambulatory [facility] 06/01/2024 Ambulatory Referral Major depressive disorder, recurrent, in remission, unspecified THoNE [facility] 05/22/2024 Ambulatory [facility] 05/18/2024 Ambulatory [facility] 05/18/2024 Ambulatory [facility] 05/18/2024 Ambulatory [facility] 05/18/2024 Ambulatory [facility] 05/18/2024 Ambulatory [facility] 05/18/2024 Ambulatory [facility] 05/17/2024 Ambulatory [facility] 05/17/2024 Ambulatory [facility] 05/17/2024 Ambulatory [facility] 05/17/2024 Ambulatory [facility] 05/17/2024 Ambulatory [facility] 05/17/2024 Ambulatory [facility] screen mammogram for malignant neoplasm of breast [facility] screen mammogram for malignant neoplasm of breast [facility] 02/06/2024 Ambulatory [facility] 11/10/2023 Ambulatory Major depressive disorder, recurrent, in remission, unspecified Major depressive disorder, recurrent, in remission, unspecified [facility] 08/28/2023 Ambulatory [facility] 08/28/2023 Ambulatory [facility] 04/07/2023 Ambulatory [facility] 04/05/2023 Ambulatory [facility] 04/04/2023 Ambulatory [facility]tr for manager product marketing exam (general) (routine) w/o abn findings [facility] 02/22/[address] [facility] 2022 Ambulatory [facility] 02/06/2023 Ambulatory [facility] 02/06/2023 Ambulatory [facility] screen mammogram for malignant neoplasm of breast [facility] 02/01/2023 Ambulatory [facility] 12/23/2022 Ambulatory [facility] 12/23/2022 Ambulatory [facility] 12/23/2022 Ambulatory [facility] 12/23/2022 Ambulatory [facility] 12/22/2022 Ambulatory [facility] 12/22/2022 Ambulatory [facility] 12/22/2022 Ambulatory [facility] 12/07/2022 Ambulatory Other fracture o f left lower leg, initial encounter for closed fracture [facility] 09/21/2022 Emergency Headache, unspecified [facility] 08/05/2022 Ambulatory [facility] 2021 Ambulatory [facility] 11/09/2021 Care Team Organization Name Specialty Phone Email Start Date End Da te [facility] 12/11/2024 [facility] 12/02/2024 [facility] 10/10/2024 [facility] 10/08/2024 [facility] 06/20/2024 [facility] 06/18/2024 [facility] 05/23/2024 [facility] Primary [facility] 05/23/2024 [facility] 05/22/2024 Office of the Benefits Technician (OSC) 01/19/2024 [facility]/22[facility]23 10/23/2023 [facility] 02/22/2023 [facility] 02/01/2023 02/01/2023 [facility] 02/01/2023 [facility] 01/05/2023 024 [facility] 11/26/2022 024 [facility] 09/23/2022 09/17/2024 [facility] 09/21/2022 09/21/2022 [facility] [employer] [facility] Primary Care 08/05/2022 08/05/2022 [employer] [facility] 08/05/2022 08/05/2022 [facility] 08/05/2022 [facility] Primary Care 01/11/2022 10/23/2023
--- OUTSIDE RECORDS SUMMARY | 2025-01-03 13:34 | XMS_ITS | Clinical Summary ---
Author Organization Formerly [facility] Address [address] [place] [address] Care Team Providers Care Design Director Name Role Phone Nikos Elkins MD Primary Care Provider [phone] Harriet Pal MD Unavailable [phone] Allergies Active Allergy Reactions Criticality Noted Date Comments Povidone Iodine Hives,Rash/Dermatitis Medium 7 Morphine Other (See Comments) 08/10/2016 INTERNAL BURNING SENSATION Medications esomeprazole (NexIUM) 40 MG capsule Take 40 mg by mouth daily. Active Cholecalciferol (VITAMIN D) 2000 units tablet Take 2,000 Units by mouth every evening. Active calcium & magnesium carbonates (MYLANTA) 311-232 MG per tablet Take 1 tablet by mouth every evening. Active zolpidem (AMBIEN CR) 12.5 MG CR tablet Take 12.5 mg by mouth nightly. Swallow tablet whole; do not split, crush or chew Active methocarbamol (ROBAXIN) 750 MG tablet TAKE 1 TABLET BY MOUTH 3 TIMES A DAY FOR 7 DAYS NEEDED FOR MUSCLE PAIN 0 05/24/2017 Active EVAMIST 1.53 MG/SPRAY transdermal spray USE 2 SPRAY (1.53MG) BY TOPICAL ROUTE EVERY DAY TO FOREARM 3 04/25/2017 Active cyclobenzaprine (FLEXERIL) 5 MG tablet Take 5 mg by mouth 3 times daily (every 8 hours) as needed for muscle spasms. Active butalbital-aceta minophen-caffein e (FioriCET, ESGIC) 50-325-40 mg tablet Take 1-2 tablets by mouth every 4 (four) hours as needed for pain. Max: 6 capsules/tab lets in 24 hours 10 tablet 06/14/2018 Active meclizine (ANTIVERT) 25 MG tablet Take 1 tablet (25 mg total) by mouth 3 (three) times a day as needed for dizziness. 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 Bariatric surgery status 06/11/2017 Family History Medical History Relation Name Comments Cancer Father lung Diabetes Father Cancer Maternal Grandfather lung Multiple sclerosis Mother Dementia Paternal Grandfather Relation Name Status Comments Father Maternal Grandfather Mother Paternal Grandfather Social History Tobacco Use Types Packs/Day Years Used Date Smoking Tobacco: Never Assessed Smokeless Tobacco: Never Tobacco Cessation:Counseling Given: Not Answered Alcohol Use Standard Drinks/Week Comments Yes 0 (1 standard drink = 0.6 oz pur e alcohol) OCCASIONAL Comments No Sex and Gender Information Value Date Recorded Sex Assigned at Female 08/08/2022 9:24 AM EDT Legal Sex Female 5:31 PM EDT Gender Identity Female 08/08/2022 9:24 AM EDT Sexual Orientation Heterosexual (straight) 08/08 9:24 AM EDT Last Filed Vital Signs Vital Sign Reading Time Taken Comments Blood Pressure 118/56 08/05/2022 10:40 AM EDT Pulse 51 08/05/2022 10:40 AM EDT Temperature 36.7 C (98 F) 08/05/2022 10:40 AM EDT Respiratory Rate 18 08/05/2022 10:40 AM EDT Oxygen Saturation 100% 08/05/2022 10:40 AM EDT Inhaled Oxygen Concentration - - Weight 76.2 kg (168 lb) 05/30/2017 11:49 AM EDT Height 170.2 cm (5' 7 ) 05/30/2017 11:49 AM EDT Body Mass Index 26.31 05/30/2017 11:49 AM EDT Plan of Treatment Health Maintenance Due Date Last Done Comments Hepatitis C Virus Screening 1974 HIV Screening 11/17/1987 DTaP/Tdap/Td Vaccines (1 - Tdap) 1993 Hepatitis B Vaccines (1 of 3 - 19+ 3-dose series) 1993 Mammogram 2014 Colonoscopy 11/17/2019 Influenza Vaccine 10/04/2024 12/26/2020 COVID-19 Vaccine (3 - 2024- season) 11/04/202412/2020, 03/18/2020 Pap Smear (Ages 21-65) 11/09/2024 11/09/2021 Pneumococcal Vaccines 50+ (1 of 1 - PCV) 2024 Zoster (Shingles) Vaccine (1 of 2) 2024 RSV Vaccine 50 years and old er and Patients (1 - 1-dose 75+ series) 2049 Procedures Procedure Name Priority Date/Time Associated Diagnosis Comments THINPREP PAP(CHALK TESTER) HPV SCR RFX HPV 16,18/45 Routine 11/09/2021 1:29 PM EDT from Last 3 Months or Most Recently Relevant to Health Maintenance Results * ThinPrep Pap(Car Repairman) HPV Scr Rfx HPV 16,18/45 (11/09/2021 1:29 PM EDT) Report Report [facility] Comment: Final Gynecological Cytology Report ThinPrep Pap Test, HPV Screen, Reflex HPV Genotype SPECIMEN ADEQUACY: SATISFACTORY FOR EVALUATION. INTERPRETATION: NEGATIVE FOR INTRAEPITHELIAL LESION OR MALIGNANCY. Electronically Signed: Kesha Crowe, [place] (ASCP) CLINICAL INFORMATION: LMP: NG Clinical History: NG Biopsy Date: NG Specimen Source: Vaginal Previous Pap Date: NG HPV RESULTS: HPV mRNA E6/E7 [id number] Approved: 11/13/21 Negative REF RANGE: Negative CPT Codes: 33888 ICD Codes: Z01.419 Other 11/09/2021 1:29 PM EDT 11/12/2021 12:30 PM EDT Nikos Reaves MD LAB AMB PATH/CYTO ORDERABL ES Final Result [facility] [address], [place] from Last 3 Months or Most Recently Relevant to Health Maintenance Insurance [facility] Care Teams Design Director Relationship Specialty Start Date End Date Nikos Elkins MD PCP - General Internal Medicine 08/05/22 Harriet Pal MD [address] [place] [address] 08/05/22
--- OUTSIDE RECORDS SUMMARY | 2025-01-03 13:34 | XMS_ITS | Encounter Summary ---
Author Organization [facility] Address [address] [place] [address] Care Team Providers Care House Wirer Helper Name Role Phone Nikos Elkins MD Primary Care Provider [phone] Encounter Details Date Type Department Care Team (Late st Contact Info) Description 09/18/2024 Procedure Pass [facility] Radiology, Outpatient Center (Ultrasound) [address] [facility] [place] [address] Social History Tobacco Use Types Packs/Day Years Used Date Smoking Tobacco: Never Assessed Comments No Sex and Gender Information Value Date Recorded Sex Assigned at Not on file Legal Sex Female 2:10 PM EST Gender Identity Not on file Sexual Orientation Not on file documented as of this encounter Plan of Treatment Not on file documented as of this encounter Visit Diagnoses Not on filedocumented in this encounter Care Teams House Wirer Helper Relationship Specialty Start Date End Date Nikos Elkins MD [address] [facility] 2nd [facility] [place] [address] PCP - General 03/11/19 documented as of this encounter
--- OUTSIDE RECORDS SUMMARY | 2025-01-03 13:34 | XMS_ITS | Encounter Summary ---
Author Organization [facility] Address [address] [place] [address] Care Team Providers Care Book Sewing Machine Operator Name Role Phone Nikos Elkins MD Primary Care Provider [phone]- [phone] Encounter Details Date Type Department Care Team ([facility] st Contact Info) Description 06/17/2024 Ancillary Orders [facility] Radiology, [facility] (Diag Rad) [address] [place] [address] ProviderGino MD [address] [place] [address] Social History Tobacco Use Types Packs/Day Years [...] Results * MG TRANSFER OF OUTSIDE FILMS (05/18/2018 12:00 AM EDT) Narrative IMAGING - 06/17/2024 7:34 AM EDT This order has been auto-finalized and does not contain a result. us Gino Provider MD [facility] BI PROCEDURES Final Resu lt IMAGING documented in this encounter Visit Diagnoses Not on filedocumented in this encounter Care Teams Book Sewing Machine Operator Relationship Specialty Start Date End Date Nikos Elkins MD [address] [place], [place] [address] [place] [address] PCP - General 03/11/19 documented as of this encounter
--- OUTSIDE RECORDS SUMMARY | 2025-01-03 13:34 | XMS_ITS | Clinical Summary ---
Author Organization [facility] Address [address] [place] [address] Care Team Providers Care Veneer Stock Grader Name Role Phone Nikos Elkins MD Primary Care Provider Jayant lable Allergies Active Allergy Reactions Criticality Noted Date Comments Morphine Nausea And Vomiting High Povidone Iodine Hives,Rash Medium 08/10/2016 Seasonal Medications Medication Sig Dispensed Refills Start Date End Date Status ibuprofen 800 MG tablet 0 10/28/2020 Active [place]-3 Fatty Acids (FISH OIL PO) Take by mouth. 0 Active Multiple Vitamin (MULTIVITAMIN ADULT PO) Take by mouth. 0 Active estradiol (ESTRACE) 1 MG tablet daily. 0 Active acyclovir (ZOVIRAX) 5 % ointment APPLY TOPICALLY 3 TIMES A DAY TO COLD SORE ON LIPS 0 03/28/2022 Active topiramate (TOPAMAX) 50 MG tabletIndications:Mi graine without aura and without status migrainosus, not intractable 50mg tablet at night and 25mg tablet in the morning 90 tablet 2 07/27/2023 Active lamoTRIgine (LaMICtal) 200 MG tablet Take 1 tablet (200 mg total) by mouth daily. 0 08/08/2023 Active buPROPion (WELLBUTRIN XL) 300 MG 24 hr tabletIndications:De pression, major, recurrent, in remission (HCC) TAKE 1 TABLET BY MOUTH EVERY DAY 90 tablet 1 11/07/2023 Active zolpidem (AMBIEN CR) 12.5 MG CR tabletIndications:Pr imary insomnia TAKE 1 TABLET BY MOUTH EVERY NIGHT AT BEDTIME NEEDED FOR SLEEP 30 tablet 1 12/25/2023 Active Active Problems Problem Noted Date Diagnosed Date History of sleeve gastrectomy 08/28/2023 Migraine without aura and wi thout status migrainosus, not intractable 05/29/2023 Primary insomnia 02/22/2019 Depression, major, recurrent, in remission 02/22 Anxiety 02/22/2019 Resolved Problems Problem Noted Date Diagnosed Date Resolved Date Benign paroxysmal positional vertigo 08/12/2022 08/28/2023 Episodic migraine 08/12/2022 08/28/2023 Ecchymosis 09/20/2018 05/19/2021 Last Assessment & Plan: Concerning for blood disorder vs hormonal Moderate depressive episode 04/10/2018 05/19/2021 Last Assessment & Plan: Psychological condition is Newly identified. Regular aerobic exercise. Medication changes per orders. Referral to psychological counseling. Psychological condition will be reassessed at the next regular appointment. Gastroesophageal reflux disease 09/20/2017 08/28/2023 Change in bowel movement 09/20/201707/2018 Rectal bleeding 09/20/2017 04/10/2018 Constipation 09/20/2017 04/10/2018 Acute suppurative otitis med ia of right ear without spontaneous rupture of tympanic membrane 05/17/2017 04/10/2018 Routine general medical exam ination at a health care facility 02/24/2017 09/20/2018 Dysuria 11/23/2016 04/10/2018 Incisional pain 11/23/2016 04/10/2018 Last Assessment & Plan: Likely growing nerves s/p her surgery Immunizations Name Administration Dates Next Due Covid-19 (Moderna 12+) 100mcg/0.5mL dosage 04/15,03/18/2020 Covid-19 (Pfizer) Dilution Required 01/27/2021 Influenza Quad (High Dose Fl uzone) 0.7mL >65Yrs (HD-IIV4) 02/22/2021 Influenza Trivalent (Fluzone /Afluria) 5.0mL Multi-dose Vial 12/26/2020 Family History Medical History Relation Name Comments Lung cancer Father Multiple sclerosis Mother Colon cancer Other 2 great grandfather mat. passe d: 62 Relation Name Status Comments Father lung cancer, DM Mother Alive MS Other 1 great grand mother stroke Other 2 great grandfather Other colon canc er Social History Tobacco Use Types Packs/Day Years Used Date Smoking Tobacco: Never Smokeless Tobacco: Never Tobacco Cessation:Counseling Given: Not Answered Alcohol Use Standard Drinks/Week Comments Yes 1 (1 standard drink = 0.6 oz pur e alcohol) social Sex and Gender Information Value Date Recorded Sex Assigned at Female 09/19/2018 8:53 AM EDT Gender Identity Female 09/19/2018 8:53 AM EDT Sexual Orientation Not on file Job Start Date Occupation Industry Not on file Not on file Not on file Last Filed Vital Signs Vital Sign Reading Time Taken Comments Blood Pressure 112/62 08/28/2023 10:15 AM EDT Pulse 55 08/28/2023 10:15 AM EDT Temperature 36.4 C (97.6 F) 08/28/2023 10:15 AM EDT Respiratory Rate 12 08/28/2023 10:15 AM EDT Oxygen Saturation 98% 08/28/2023 10:15 AM EDT Inhaled Oxygen Concentration - - Weight 78.9 kg (174 lb) 08/28/2023 10:15 AM EDT Height 170.2 cm (5' 7 ) 08/28/2023 10:15 AM EDT Body Mass Index 27.25 08/28/2023 10:15 AM EDT Plan of Treatment Health Maintenance Due Date Last Done Comments Breast Cancer Screening (Mammogram) 11/27/2023 11/26/2021, 08/12/2020 BMI Counseling 08/27/2024 08/28/2023, 08/05, 09/27/2022, Additional history exists Depression Screening 08/27/2024 08/28/2023, 08/09/2022, 08/09/2022, Additional history exists Preventative Health Evaluation 08/27/2024 08/28/2023, 08/28/2023, 08/09/2022, Additional history exists Influenza Vaccine (#1) 2024 , 12/26/2020, 05/12/2020 (Declined) Shingrix-Zoster Vaccine (1 of 2) 2024 Colon Cancer Screening (Colonoscopy) 10/26/2027 10/25/2017 DTap / Tdap / Td (2 - Td or Tdap) 04/12/2029 04/12/2019 (Pt Reported - Need documentation) COVID-19 Vaccine Discontinued 01/27/2021, 12/2020, 03/18/2020 Hepatitis C Screening Completed 04/01/2022 Hepatitis B Vaccines Discontinued Pneumococcal Vaccine Discontinued RSV Ped < 20 months Aged Out No longe r eligible based on patient's age to complete this topic Advance Directives For more information, please contact: [phone] Documents on File Type Date Recorded 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
--- OUTSIDE RECORDS SUMMARY | 2025-01-03 13:34 | XMS_ITS | Encounter Summary ---
[facility] Organization [facility] Address [address] [place] [address] Care Team Providers Care Aircraft Powerplant Repairer Name Role Phone Nikos Elkins MD Primary Care Provider [phone] Encounter Details Date Type Department Care Team (Late st Contact Info) Description 12/04/2024 Results Follow-Up Gastroenterology - [place] [address] [facility] [place] [phone] Stan Serrano MD [address] [facility] [address] [place] [address] Social History Tobacco Use Types Packs/Day Years Used Date Smoking Tobacco: Never Passive Smoke Exposure: Never Smokeless Tobacco: Never Alcohol Use Standard Drinks/Week Comments Yes 1 (1 standard drink = 0.6 oz pur e alcohol) Comments No Sex and Gender Information Value Date Recorded Sex Assigned at Not on file Legal Sex Female 6:46 PM EST Gender Identity Not on file Sexual Orientation Not on file documented as of this encounter Progress Notes * Stan Serrano MD - 12/04/2024 8:21 AM EDT Please call the patient to inform the pathology result. He/she had 1 polyp(s) removed during colonoscopy. Pathology showed it/them to be benign type polyp. So he/she needs a repeat colonoscopy in 10 years based on the current guidelines. Please put him/her in the system for recall. documented in this encounter Plan of Treatment Upcoming Encounters Date Type Department Care Team (Late st Contact Info) Description 10/13/2025 1:00 PM EDT Office Visit Internal Medicine - [place] [address] [facility] 2nd [place] [phone] Nikos Elkins MD [address] [place], [place] [address] 12/22/2025 1:45 PM EDT Office Visit Bariatric Surgery - [place] [address] [place] [phone] Wally Rojo MD [address] [place] [address] documented as of this encounter Goals Goal Patient Goal Type Associated Problems Recent Progress Patient-Stated? Author Autogenerat ed Goal Care Plan Autogenerated Problem No Ammy Braden documented as of this encounter Visit Diagnoses Not on filedocumented in this encounter Additional Health Concerns Active Problems Noted Date Diagnosed Date Autogenerated Problem 12/01/2024 Assessment Noted Time PHQ-9 Depression Total Score: 8 10/09/19 1:17 PM EDT documented as of this encounter Care Teams Aircraft Powerplant Repairer Relationship Specialty Start Date End Date Nikos Elkins MD [address] [place] [address] [address] PCP - General Internal Medicine 05/22/24 documented as of this encounter
--- OUTSIDE RECORDS SUMMARY | 2025-01-03 13:34 | XMS_ITS | Clinical Summary ---
Author Organization [facility] Address [address] [place], [place] [id number] Phone Care Team Providers Care Pipe Changer Name Role Phone Nikos Elkins MD Primary Care Provider [phone] Allergies Active Allergy Reactions Criticality Noted Date Comments Morphine Nausea And Vomiting,Other (See Comments) High 08/10/2016 INTERNAL BURNING SENSATION Povidone-Iodine Hives,Rash Medium 08/10/2016 Levonorgestrel-Ethin yl Estrad 03/17/2021 Medications omega-3 fatty acids-fish oil 300-1,000 mg Cap Take by mouth. Activ e multivitamins with iron-folic acid (CENTRUM COMPLETE) 18-400 mg-mcg Tab Take by mouth. Activ e buPROPion (WELLBUTRIN XL) 300 MG ER 24 hr tablet Take 1 tablet by mouth daily. 1 Active cholecalciferol (VITAMIN D3) 2,000 unit tablet Take 2,000 Units by mouth. Active famotidine (PEPCID) 40 MG tablet Take 1 tablet by mouth every evening. 1 Active estrogens, conjugated, (PREMARIN) 0.625 MG tablet Premarin 0.625 mg tablet TAKE 1 TABLET BY MOUTH EVERY DAY Active acyclovir (ZOVIRAX) 5 % ointment APPLY TOPICALLY 3 TIMES A DAY TO COLD SORE ON LIPS 3 Active cyclobenzaprine (FLEXERIL) 5 MG tablet Take 1 tablet by mouth 2 (two) times a day as needed. 3 Active meclizine (ANTIVERT) 25 mg tablet Take 25 mg by mouth 3 (three) times a day as needed. 3 Active phentermine 15 MG capsule TAKE 1 CAPSULE BY MOUTH ONCE DAILY BEFORE BREAKFAST 3 Active venlafaxine (EFFEXOR-XR) 37.5 MG 24 hr capsule Take 1 capsule by mouth every morning. 3 Active zolpidem (AMBIEN CR) 12.5 MG CR tablet Take 12.5 mg by mouth nightly at bedtime as needed. 3 Active naproxen (NAPROSYN) 500 MG tablet Take 1 tablet (500 mg total) by mouth 2 (two) times a day as needed (moderate pain). 14 tablet 3 Active Active Problems No known active problems Social History Tobacco Use Types Packs/Day Years Used Date Smoking Tobacco: Never Smokeless Tobacco: Never Tobacco Cessation:Counseling Given: Not Answered Education Answer Date Recorded Are you interested [...] on file Sexual Orientation Not on file Last Filed Vital Signs Vital Sign Reading Time Taken Comments Blood Pressure 97/71 08/14/2022 10:07 AM EDT Pulse 71 08/14/2022 10:07 AM EDT Temperature 36.9 C (98.4 F) 08/14/2022 10:07 AM EDT Respiratory Rate 16 08/14/2022 10:07 AM EDT Oxygen Saturation 99% 08/14/2022 10:07 AM EDT Inhaled Oxygen Concentration - - Weight 81.6 kg (180 lb) 08/14/2022 10:07 AM EDT Height 170.2 cm (5' 7 ) 08/14/2022 10:07 AM EDT Body Mass Index 28.19 08/14/2022 10:07 AM EDT Plan of Treatment Health Maintenance Due Date Last Done Comments Adult Td,Tdap Booster 1974 DEPRESSION SCREENING 1986 HEPATITIS C SCREENING 1992 HIV ONE-TIME SCREENING (18-6 5 YEARS) 1992 PAP SMEAR 11/17/1995 SCREENING FOR DIABETES 2009 MAMMOGRAM 2014 COLOGUARD 11/17/2019 COLONOSCOPY 11/17/2019 COLORECTAL CANCER SCREENING 11/17/2019 FIT TEST 11/17/2019 FOBT 11/17/2019 SIGMOIDOSCOPY 11/17/2019 VIRTUAL COLONOSCOPY 11/17/2019 INFLUENZA VACCINE (#1) 2024 , 12/26/2020 COVID-19 VACCINE (4 - 2024-2 6 season) 2024 01/27/2021, 04/15/2020, 03/18/2020 PNEUMOCOCCAL VACCINES (50+ years) (1 of 1 - PCV) 2024 ZOSTER VACCINES (1 of 2) 2024 LIPID PANEL 08/13/2027 08/12/2022 RSV VACCINE (1 - 1-dose 75+ series) 2049 SMOKING STATUS SCREENING (On ce After 26 Yrs) Completed 08/15/2022 HEPATITIS A VACCINES Aged Out No long er eligible based on patient's age to complete this topic HIB VACCINES Aged Out No longer eligi ble based on patient's age to complete this topic MENINGOCOCCAL VACCINES (ACWY) Aged Out No longer eligible based on patient's age to complete this topic MENINGOCOCCAL VACCINES (B) Aged Out N o longer eligible based on patient's age to complete this topic Medical Devices Not on file Insurance [facility] OUT OF STATE HMO BLUE CROSS OUT OF [facility] HMO BLUE CROSS OUT [facility] OUT [place] [address] OUT [facility]UE [facility] Care Teams Pipe Changer Relationship Specialty Start Date End Date Nikos Elkins MD PCP - General Internal Medicine 08/14/22 Additional Source Comments The information contained in this document represents components of the legal health record. It is not the complete legal health record[facility]
--- OUTSIDE RECORDS SUMMARY | 2025-01-03 13:34 | XMS_ITS | Encounter Summary ---
Author Organization [facility] Address [address] [place] [address] Care Team Providers Care Shoe Lacer Name Role Phone Nikos Elkins MD Primary Care Provider +- [phone] Encounter Details Date Type Department Care Team (Late st Contact Info) Description 06/17/2024 Ancillary Orders [facility] Radiology, [facility] (Diag Rad) [address] [place] [address] ProviderGino MD [address] [place] [address] Social History Tobacco Use Types Packs/Day Years [...] Results * MG TRANSFER OF OUTSIDE FILMS (02/22/2023 12:00 AM EST) Narrative IMAGING - 06/17/2024 7:36 AM EDT This order has been auto-finalized and does not contain a result. us Gino Provider MD [facility] BI PROCEDURES Final Resu lt IMAGING documented in this encounter Visit Diagnoses Not on filedocumented in this encounter Care Teams Shoe Lacer Relationship Specialty Start Date End Date Nikos Elkins MD [address] [place], [place] [address] [place] [id number] PCP - General 03/11/19 documented as of this encounter
--- OUTSIDE RECORDS SUMMARY | 2025-01-03 13:34 | XMS_ITS | Encounter Summary ---
Author Organization [facility] Address [address] [place] [id number] Care Team Providers Care Pharmacy Intake Coordinator Name Role Phone Nikos Elkins MD Primary Care Provider [phone]- [phone] Reason for Referral * Imaging (Routine) - Authorized Specialty Diagnoses / Procedures Referred By Contac t Referred To Contact Radiology Diagnoses Screening mammogram, encounter for Procedures MG BREAST SCREENING TOMOSYNTHESIS BILATERAL Nikos Reaves MD [address] [address] Phone: tel: fax: [facility] - Central Scheduling [facility] Phone: tel: fax: Referral ID Status Reason Start Date Expiration Date Visits Requested Visits Authorized [id number] Authorized Perform Procedure 05/10/2024 05/10/2025 1 1 Encounter Details Date Type Department Care Team (Late st Contact Info) Description 05/10/2024 Ancillary Orders [facility] - Central Scheduling [facility] [phone] Nikos Reaves MD [address] [address] Screening mammogram, encounter for (Primary Dx) Social History Tobacco Use Types Packs/Day Years Used Date Smoking Tobacco: Never Assessed Comments Unknown Sex and Gender Information Value Date Recorded Sex Assigned at Not on file Legal Sex Female 2:10 PM EST Gender Identity Not on file Sexual Orientation Not on file documented as of this encounter Plan of Treatment Not on file documented as of this encounter Results * MG BREAST SCREENING TOMOSYNTHESIS BILATERAL (07/22/2024 2:32 PM EDT) Anatomical Region Laterality Modality Breast Bilateral Mammography 07/23/2024 1:13 PM EDT Impressions 07/23/2024 4:15 PM EDT No mammographic evidence of malignancy. The breasts are heterogeneously dense, and consider a bilateral screening breast ultrasound for further evaluation, as clinically indicated. Annual screening mammography and sonography is suggested. BREAST:Right RECOMMENDATION:Follow-up in 12 months BREAST:Left RECOMMENDATION:Follow-up in 12 months BIRADS:2, Benign Tyrer Cuzick (TC) 8 model lifetime breast cancer risk score is: 9.5%, based on the information provided by the patient at the time of the breast imaging. A patient with a calculated TC 8 score of 20% or greater is considered high risk for breast cancer and supplemental screening with annual breast MRI with and without contrast is recommended. If the patient's risk score is 20% or greater, they will be contacted by the nurse navigator to facilitate an ambulatory referral to breast surgery for formal breast risk evaluation. Narrative 07/23/2024 4:15 PM EDT EXAM: BREAST SCREENING TOMOSYNTHESIS BILATERAL CLINICAL INFORMATION:Screening mammogram, encounter for, screening PROTOCOL: Routine mammogram including craniocaudal and mediolateral oblique views with Computer Aided Detection. Tomographic views were also obtained. COMPARISON: 02/22/2023, 2021 and 08/12/2020 BREAST DENSITY:The breasts are heterogeneously dense, which may obscure small masses. FINDINGS: The bilateral screening mammogram demonstrates no suspicious mammographic abnormality in either breast. Patchy areas of dense asymmetric fibroglandular tissue are again identified. No mass, clustered microcalcifications or architectural distortion is seen. No significant interval change is identified. Procedure Note Ever Miranda MD - 07/23/2024 EXAM: MG BREAST SCREENING TOMOSYNTHESIS BILATERAL CLINICAL INFORMATION:Screening mammogram, encounter for, screening PROTOCOL: Routine mammogram including craniocaudal and mediolateraloblique views with Computer Aided Detection. Tomographic views were alsoobtained. COMPARISON: 02/22/2023, 2021 and 08/12/2020 BREAST DENSITY:The breasts are heterogeneously dense, which may obscuresmall masses. FINDINGS: The bilateral screening mammogram demonstrates no suspicious mammographicabnormality in either breast. Patchy areas of dense asymmetric fibroglandular tissue are againidentified. No mass, clustered microcalcifications or architectural distortion isseen. No significant interval change is identified. IMPRESSION: No mammographic evidence of malignancy. The breasts are heterogeneously dense, and consider a bilateral screeningbreast ultrasound for further evaluation, as clinically indicated. Annual screening mammography and sonography is suggested. BREAST:Right RECOMMENDATION:Follow-up in 12 months BREAST:Left RECOMMENDATION:Follow-up in 12 months BIRADS:2, Benign Tyrer Cuzick (TC) 8 model lifetime breast cancer risk score is: 9.5%,based on the information provided by the patient at the time of the breastimaging. A patient with a calculated TC 8 score of 20% or greater isconsidered high risk for breast cancer and supplemental screening withannual breast MRI with and without contrast is recommended. If thepatient's risk score is 20% or greater, they will be contacted by [facility] navigator to facilitate an ambulatory referral to breast surgery forformal breast risk evaluation. us Nikos Reaves MD IMG BI PROCEDURES Final Re sult documented in this encounter Visit Diagnoses Diagnosis Screening mammogram, encounter for- Primary Screening mammogram, encounter for documented in this encounter Care Teams Pharmacy Intake Coordinator Relationship Specialty Start Date End Date Nikos Elkins MD [address] [place], [place] [address] [facility] [place] [id number] PCP - General 03/11/19 documented as of this encounter
--- OUTSIDE RECORDS SUMMARY | 2025-01-03 13:34 | XMS_ITS | Encounter Summary ---
Author Organization [facility] Address [address] [place] [address] Care Team Providers Care Australian Rules Footballer Name Role Phone Nikos Elkins MD Primary Care Provider +- [phone] Encounter Details Date Type Department Care Team ([facility] st Contact Info) Description 06/17/2024 Ancillary Orders [facility] Radiology, [facility] (Diag Rad) [address] [place] [address] ProviderGino MD [address] [place] [address] Social History Tobacco Use Types Packs/Day Years [...] Results * MG TRANSFER OF OUTSIDE FILMS (08/09/2019 12:00 AM EDT) Narrative IMAGING - 06/17/2024 7:35 AM EDT This order has been auto-finalized and does not contain a result. us Gino Provider MD COCHRAN BI PROCEDURES Final Resu lt IMAGING documented in this encounter Visit Diagnoses Not on filedocumented in this encounter Care Teams Australian Rules Footballer Relationship Specialty Start Date End Date Nikos Elkins MD [address] [place] [id number] PCP - General 03/11/19 documented as of this encounter
--- OUTSIDE RECORDS SUMMARY | 2025-01-03 13:34 | XMS_ITS | Encounter Summary ---
Author Organization [facility] Address [address] [place] [address] Care Team Providers Care Claim Manager Name Role Phone Nikos Elkins MD Primary Care Provider [phone]- [phone] Reason for Referral * Imaging (Routine) - Authorized Specialty Diagnoses / Procedures Referred By Contac t Referred To Contact Radiology Diagnoses Dense breasts, unspecified Procedures US BREAST COMPLETE DENSE BILATERAL Nikos Reaves MD [address] [address] Phone: tel: fax: [facility] - Central Scheduling [place] Phone: tel: fax: Referral ID Status Reason Start Date Expiration Date Visits Requested Visits Authorized [id number] Authorized Perform Procedure 09/18/2024 09/18/2025 1 1 Encounter Details Date Type Department Care Team (Late st Contact Info) Description 09/18/2024 Ancillary Orders [facility] - Central Scheduling [facility] [phone] Nikos Reaves MD [address] [address] Dense breasts, unspecified (Primary Dx) Social History Tobacco Use Types [...] documented as of this encounter Results * US BREAST COMPLETE DENSE BILATERAL (10/08/2024 4:00 PM EDT) Anatomical Region Laterality Modality Breast N/A Ultrasound 10/09/2024 1:18 PM EDT Impressions 10/09/2024 1:24 PM EDT Probably benign 7 mm mass within the right breast at 10:00, 2 cm FN. Follow-up breast ultrasound recommended in 6 months. BREAST: Right RECOMMENDATION: Follow-up imaging in 6 months BREAST: Left RECOMMENDATION: Annual screening mammogram in 1 year BI-RADS: 3, Probably benign Narrative 10/09/2024 1:24 PM EDT PROCEDURE: US BREAST COMPLETE DENSE BILATERAL CLINICAL INFORMATION:Dense breasts, unspecified, dense COMPARISON: Most recent 07/22/2024, dating back to 2019 PROTOCOL: Grayscale imaging of all four quadrants and the retro-areola region FINDINGS: Bilateral breast ultrasound performed. Right breast: 10:00, 2 cm FN: There is a 7 x 3 x 7 mm oval-shaped, homogeneously echogenic mass. No internal vascularity. There is no architectural distortion or suspicious calcification. Left breast: There is no mass, architectural distortion or suspicious calcification. Procedure Note Nikos Gr DO - 10/09/2024 PROCEDURE: US BREAST COMPLETE DENSE BILATERAL CLINICAL INFORMATION:Dense breasts, unspecified, dense COMPARISON: Most recent 07/22/2024, dating back to 2019 PROTOCOL: Grayscale imaging of all four quadrants and the retro-areolaregion FINDINGS: Bilateral breast ultrasound performed. Right breast: 10:00, 2 cm FN: There is a 7 x 3 x 7 mm oval-shaped,homogeneously echogenic mass. No internal vascularity. There is no architectural distortion or suspicious calcification. Left breast: There is no mass, architectural distortion or suspiciouscalcification. IMPRESSION: Probably benign 7 mm mass within the right breast at 10:00, 2 cm FN.Follow-up breast ultrasound recommended in 6 months. BREAST: Right RECOMMENDATION: Follow-up imaging in 6 months BREAST: Left RECOMMENDATION: Annual screening mammogram in 1 year BI-RADS: 3, Probably benign us Nikos Reaves MD IMG US PROCEDURES Final Re sult documented in this encounter Visit Diagnoses Diagnosis Dense breasts, unspecified- Primary Dense breasts, unspecified documented in this encounter Care Teams Claim Manager Relationship Specialty Start Date End Date Nikos Elkins MD [address] [facility] [place] [id number] PCP - General 03/11/19 documented as of this encounter
--- OUTSIDE RECORDS SUMMARY | 2025-01-03 13:34 | XMS_ITS | Clinical Summary ---
Author Organization [facility] [address] [facility] Building Address [address] [facility] [place] [address] Phone Care Team Providers Care Teletype Telegrapher Name Role Phone Nikos Elkins MD Primary Care Provider [phone] Allergies Active Allergy Reactions Criticality Noted Date Comments Morphine Nausea And Vomiting High 08/01/2022 Other 05/12/2023 Povidone-Iodine Hives,Rash Medium 08/10/2016 Medications acyclovir (ZOVIRAX) 5 % ointment Apply topically 3 (three) times a day. To cold sore on lips 03/28/19 23 Active cyclobenzaprine (FLEXERIL) 5 mg tablet Take 1 tablet (5 mg total) by mouth 2 (two) times a day if needed. 03/30/19 23 Active estradioL (ESTRACE) 1 mg tablet Take 1 tablet (1 mg total) by mouth 1 (one) time each day. Active ibuprofen (ADVIL,MOTRIN) 800 mg tablet Take 1 tablet (800 mg total) by mouth. 10/29/19 21 Active DAILY MULTI-VITAMIN ORAL Take by mouth. Active OMEGA-3 FATTY ACIDS ORAL Take by mouth. Active topiramate (TOPAMAX) 50 mg tabletIndicatio ns:Migraine without aura, not intractable, without status migrainosus TAKE 1 TABLET BY MOUTH EVERYDAY AT BEDTIME 90 tablet 1 07/19/19 25 Active buPROPion XL (WELLBUTRIN XL) 300 mg 24 hr tabletIndicatio ns:Major depressive disorder, recurrent, in remission, unspecified (CMS/[facility] V24) TAKE 1 TABLET BY MOUTH EVERY DAY 90 tablet 1 11/28/19 25 Active zolpidem CR (AMBIEN CR) 12.5 mg CR tabletIndicatio ns:Primary insomnia TAKE 1 TABLET BY MOUTH EVERY NIGHT AT BEDTIME NEEDED FOR SLEEP 30 tablet 12/24/19 25 Active omeprazole (PriLOSEC) [address] capsuleIndicati ons:heartburn Take 1 capsule (40 mg total) by mouth 1 (one) time each day. Do not crush or chew. 90 each 1 12/27/19 25 026 Active zolpidem CR (AMBIEN CR) 12.5 mg CR tabletIndicatio ns:Primary insomnia TAKE 1 TABLET BY MOUTH EVERY NIGHT AT BEDTIME NEEDED FOR SLEEP 30 tablet 11/21/19 25 025 Discontinued Active Problems Problem Noted Date Diagnosed Date Special screening for malignant neoplasms, colon 12/02/2024 History of sleeve gastrectomy 05/22/2024 Benign paroxysmal positional vertigo 08/12/2022 Episodic migraine 08/12/2022 Anxiety 02/22/2019 Depression, major, recurrent, in remission ([facility]/ [facility] V24) 02/22/2019 Primary insomnia 02/22/2019 Gastroesophageal reflux disease 09/20/2017 Encounters Date Type Department Care Team Description 12/25/2024 1:45 PM EDT Office Visit Bariatric Surgery - [place] [address] [place] [id number] Wally Rojo MD Bariatric surgery status (Primary Dx) 12/04/2024 Results Follow-Up Gastroenterology - [place] [address] [facility] [id number] [place] [address] Stan Serrano MD 12/02/2024 1:23 PM EDT Anesthesia Event [facility] [address] [place] [address] Jermaine Graf MD 12/02/2024 11:00 AM EDT - 12/02/2024 11:59 PM EDT Hospital Encounter [facility] [address] [place] [address] Stan Serrano MD Mangla, Neeraj Kumar, MD Arno, Robert A, CRNA Colon cancer screening Discharge Disposition: Home or Self Care 11/08/2024 Telephone Bariatric Surgery - [place] [address] [place] [address] Regulo Starr MA 10/23/2024 Telephone Gastroenterology [facility] [address] [place] [address] Stan Serrano MD 10/18/2024 Telephone [facility] [place] [address] [place] [address] Fabiana Tuttle RN 10/15/2024 Telephone Gastroenterology - [place] [id number] [place] [phone] Chanel Murcia MA 10/08/2024 1:15 PM EDT Office Visit Internal Medicine - [address] [place] [address] Nikos Elkins MD Annual physical exam (Primary Dx); Depression, major, recurrent, in remission (CMS/HCC V24); Anxiety; Primary insomnia; History of sleeve gastrectomy; Colon cancer screening; Encounter for immunization from Last 3 Months Immunizations Immunization Administration Dates Next Due Influenza Quadravalent, 0.5m l (Fluzone High-dose) 65yo and older 02/22/2021 Influenza trivalent, with pr eservative (Fluzone; Afluria) 6mo and older 12/26/2020 Tdap Tetanus diptheria acell ular pertussis (Boostrix; Adacel) 7yo and older 10/08/2024 Surgical History Surgery Date Site/Laterality Comments CERVICAL FUSION PROCEDURE:CERVICAL FUSION;COMMENT:Dr. nuñez 08/27/15 SLEEVE GASTROPLASTY 2017 PROCEDURE:SLEEVE GASTROPLASTY COLONOSCOPY PROCEDURE:COLONOSCOPY UPPER GASTROINTESTINAL ENDOSCOPY 04/08/2014 PROCEDURE:UPPER GASTROINTESTINAL ENDOSCOPY;COMMENT:Dr. Rojo-gastritis, (-) h. pylori COLONOSCOPY 10/25/2017 N/A PROCEDURE:COLONOSCOPY;COMMENT :Procedure: COLONOSCOPY; Surgeon: Teodoro Weiner MD; Location: [facility]; Service: Gastroenterology; Laterality: N/A; UPPER GASTROINTESTINAL ENDOSCOPY 10/25/2017 N/A PROCEDURE:UPPER GASTROINTESTINAL ENDOSCOPY;COMMENT:Procedure: UPPER ENDOSCOPY-EGD; Surgeon: Teodoro Weiner MD; Location: [facility]; Service: Gastroenterology; Laterality: N/A; BX HYSTERECTOMY 2012 PROCEDURE:HYSTERECTOMY;COMMEN T:total - with removal of both tubes and both ovaries APPENDECTOMY 2012 PROCEDURE:APPENDECTOMY CHOLECYSTECTOMY 2015 PROCEDURE:CHOLECYSTECTOMY UPPER GASTROINTESTINAL ENDOSCOPY 11/03/2021 N/A PROCEDURE:UPPER GASTROINTESTINAL ENDOSCOPY;COMMENT:Procedure: UPPER ENDOSCOPY-EGD/BX; Surgeon: Phani Sherman MD; Location: [facility]; Service: Gastroenterology; Laterality: N/A; Medical History Medical History Date Comments Heart murmur DX:Heart murmur GERD (gastroesophageal reflux disease) DX:GERD (gastroesophageal reflux disease) Osteoarthritis DX:Osteoarthriti s Cervical disc herniation DX:Cerv ical disc herniation Migraine DX:Migraine Acid reflux DX:Acid reflux Depression DX:Depression Asthma DX:Asthma Family History Medical History Relation Name Comments Lung cancer Father Multiple sclerosis Mother Colon cancer Other 1 great grandfather mat. passe d: 62 Relation Name Status Comments Father lung cancer, DM Mother Alive MS Other 1 great grandfather Other colon canc er Other 2 great grand mother stroke Social History Tobacco Use Types Packs/Day Years Used Date Smoking Tobacco: Never Passive Smoke Exposure: Never Smokeless Tobacco: Never Tobacco Cessation:Counseling Given: Yes Alcohol Use Standard Drinks/Week Comments Yes 1 (1 standard drink = 0.6 oz pur e alcohol) Comments No Sex and Gender Information Value Date Recorded Sex Assigned at Not on file Legal Sex Female 6:46 PM EST Gender Identity Not on file Sexual Orientation Not on file Obstetrics History Last Filed Vital Signs Vital Sign Reading Time Taken Comments Blood Pressure 103/59 12/02/2024 2:16 PM EDT Pulse 54 12/02/2024 2:16 PM EDT Temperature 36.1 C (97 F) 12/02/2024 1:46 PM EDT Respiratory Rate 20 12/02/2024 2:16 PM EDT Oxygen Saturation 100% 12/02/2024 2:03 PM EDT Inhaled Oxygen Concentration - - Weight 73.6 kg (162 lb 4.8 oz) 12/25/2024 2:04 P M EDT Height 170.2 cm (5' 7 ) 12/25/2024 2:04 PM EDT Body Mass Index 25.42 12/25/2024 2:04 PM EDT Plan of Treatment Upcoming Encounters Date Type Department Care Team (Late st Contact Info) Description 10/13/2025 1:00 PM EDT Office Visit Internal Medicine - [place] [address] [place] [address] Nikos Elkins MD [address] [place] [address] 12/22/2025 1:45 PM EDT Office Visit Bariatric Surgery - [place] [address] [place] [address] Wally Rojo MD [address] [place] [address] Health Maintenance Due Date Last Done Comments Pneumococcal Vaccine: 50+ Years (1 of 2 - PCV) 1993 RSV Immunization Adult Patients (1 - Risk 50-74 years 1-dose series) 2024 Zoster Vaccines (1 of 2) 2024 Breast Cancer Screening 07/22/2026 07/22/2024 Cholesterol Screening (Lipid Panel) 10/08/2029 10/08/2024, 08/28/2023, 08/28/2023, Additional history exists DTaP,Tdap,and Td Vaccines (2 - Td or Tdap) 10/08/2034 10/08/2024 Colorectal Cancer Screening: Colonoscopy 12/02/2034 12/02/2024 COVID-19 Vaccine Discontinued 01/27/2021, 12/2020, 03/18/2020 Influenza Vaccine Discontinued 11/24/2021, , 12/26/2020 Hepatitis C Screening Completed 04/01/2022 Depression Screening Completed 10/08/2024, 08/10/19 HIV Screening Completed 10/08/2024 HIB Vaccines Aged Out No longer eligi ble based on patient's age to complete this topic HPV Vaccines Aged Out No longer eligi ble based on patient's age to complete this topic Hepatitis A Vaccines Aged Out No long er eligible based on patient's age to complete this topic Hepatitis B Vaccines Discontinued IPV Vaccines Aged Out No longer eligi ble based on patient's age to complete this topic MMR Vaccines Aged Out No longer eligi ble based on patient's age to complete this topic Meningococcal ACWY Vaccine Aged Out N o longer eligible based on patient's age to complete this topic Meningococcal B Vaccine Aged Out No l onger eligible based on patient's age to complete this topic RSV Immunization Patients Under 20 months Aged Out No longer eligible based on patient's age to complete this topic Social Influencers of Health Screening Discontinued Varicella Vaccines Aged Out No longer eligible based on patient's age to complete this topic Goals Goal Patient Goal Type Associated Problems Recent Progress Patient-Stated? Author Autogenerat ed Goal Care Plan Autogenerated Problem No SampsonAmmy de la fuente Procedures Procedure Name Priority Date/Time Associated Diagnosis Comments COLONOSCOPY Routine 12/02/2024 1:44 PM EDT Colon cancer screening TISSUE EXAM Routine 12/02/2024 1:40 PM EDT Colon cancer screening POCT HEMOGLOBIN Routine 12/02/2024 11:51 AM EDT CBC WITH AUTO DIFFERENTIAL Routine 10/08/2024 1:45 PM EDT Annual physical exam Depression, major, recurrent, in remission (CMS/HCC V24) Anxiety Primary insomnia History of sleeve gastrectomy HEPATITIS B SURFACE ANTIBODY Routine 10/08/2024 1:45 PM EDT Annual physical exam Depression, major, recurrent, in remission (CMS/HCC V24) Anxiety Primary insomnia History of sleeve gastrectomy LIPID PANEL Routine 10/08/2024 1:45 PM EDT Annual physical exam Depression, major, recurrent, in remission (CMS/HCC V24) Anxiety Primary insomnia History of sleeve gastrectomy THYROID STIMULATING HORMONE Routine 10/08/2024 1:45 PM EDT Annual physical exam Depression, major, recurrent, in remission (CMS/HCC V24) Anxiety Primary insomnia History of sleeve gastrectomy HIV 1, 2 ANTIBODY, P24 ANTIGEN WITH REFLEX TO DIFFERENTIATION Routine 10/08/2024 1:45 PM EDT Annual physical exam Depression, major, recurrent, in remission (CMS/HCC V24) Anxiety Primary insomnia History of sleeve gastrectomy HEMOGLOBIN A1C Routine 10/08/2024 1:45 PM EDT Annual physical exam Depression, major, recurrent, in remission (CMS/HCC V24) Anxiety Primary insomnia History of sleeve gastrectomy COMPREHENSIVE METABOLIC PANEL Routine 10/08/2024 1:45 PM EDT Annual physical exam Depression, major, recurrent, in remission (CMS/HCC V24) Anxiety Primary insomnia History of sleeve gastrectomy CBC AND DIFFERENTIAL Routine 10/08/2024 1:45 PM EDT Annual physical exam Depression, major, recurrent, in remission (CMS/HCC V24) Anxiety Primary insomnia History of sleeve gastrectomy ECG 12-LEAD Routine 10/08/2024 1:37 PM EDT Annual physical exam Depression, major, recurrent, in remission (CMS/HCC V24) Anxiety Primary insomnia History of sleeve gastrectomy DEPRESSION SCREENING Routine 08/09/2022 HEPATITIS C SCREENING Routine 04/01/2022 from Last 3 Months or Most Recently Relevant to Health Maintenance Results * COLONOSCOPY Sedation; [facility] (12/02/2024 1:44 PM EDT) Anatomical Region Laterality Modality Endoscopy 12/02/2024 12:5 8 PM EDT Impressions 12/02/2024 1:45 PM EDT - One 3 mm polyp at the splenic flexure, removed with a jumbo cold forceps. Resected and retrieved. Recommendation: - Discharge patient to home (with escort). - Resume previous diet. - Continue present medications. - Await pathology results. - Repeat colonoscopy in 7-10 years for surveillance based on pathology results. - The findings and recommendations were discussed with the patient. Narrative 12/02/2024 1:45 PM EDT [facility] GI Patient Name: Tanner Barrios Procedure Date: 12/02/2024 12:58 PM Date of : 1975 Age: 49 Gender: Female Note Status: Finalized Attending MD: Stan Serrano MD, Procedure Date No Time: 12/02/2024 Instrument Name: Colonoscope [id number] Procedure: Colonoscopy Indications: Screening for colorectal malignant neoplasm Providers: Stan Serrano MD Referring MD: Nikos Elkins MD Medicines: Monitored Anesthesia Care, See the Anesthesia note for documentation of the administered medications Complications: No immediate complications. Procedure: After I obtained informed consent, the scope was passed under direct vision. Throughout the procedure, the patient's blood pressure, pulse, and oxygen saturations were monitored continuously.The Colonoscope was introduced through the anus and advanced to the cecum, identified by appendiceal orifice and ileocecal valve. The colonoscopy was performed without difficulty. The patient tolerated the procedure well. The quality of the bowel preparation was evaluated using the BBPS ([place] Bowel Preparation Scale) with scores of: Right Colon = 2 (minor amount of residual staining, small fragments of stool and/or opaque liquid, but mucosa seen well), Transverse Colon = 3 (entire mucosa seen well with no residual staining, small fragments of stool or opaque liquid) and Left Colon = 2 (minor amount of residual staining, small fragments of stool and/or opaque liquid, but mucosa seen well). The total BBPS score equals 7. The quality of the bowel preparation was good. Findings: The digital rectal exam was normal. The colonoscope was advanced into the cecum, identified by the appendiceal orifice and the IC valve. Entire colonic mucosa was examined carefully with help of Endocuff vision (distal attachment) during withdrawal to look for polyps. Retroflexion in the right colon was performed. A 3 mm polyp was found in the splenic flexure. The polyp was sessile. The polyp was removed with a jumbo cold forceps. Resection and retrieval were complete. The exam was otherwise without abnormality on direct and retroflexion views. Procedure Code(s): --- Professional --- 05728, Colonoscopy, flexible; with biopsy, single or multiple Diagnosis Code(s): --- Professional --- Z12.11, Encounter for screening for malignant neoplasm of colon D12.3, Benign neoplasm of transverse colon (hepatic flexure or splenic flexure) CPT copyright 2020 [employer]. All rights reserved. The codes documented in this report are preliminary and upon shipping/receiving manager review may be revised to meet current compliance requirements. MD Stan Ye MD 12/02/2024 1:45:55 PM This report has been signed electronically.Stan Serrano MD Number of Addenda: 0 Note Initiated On: 12/02/2024 12:58 PM Scope Withdrawal Time: 0 hours 10 minutes 8 seconds Scope In: 1:28:40 PM Scope Out: 1:42:[address] [address] Procedure Note Stan Serrano MD - 12/02/2024 [facility] GI Patient Name: Tanner Barrios Procedure Date: 12/02/2024 12:58 PM Date of : 1975 Age: 49 Gender: Female Note Status: Finalized Attending MD: Stan Serrano MD, Procedure Date No Time: 12/02/2024 Instrument Name: Colonoscope Pedi [id number] Procedure: Colonoscopy Indications: Screening for colorectal malignant neoplasm Providers: Stan Serrano MD Referring MD: Nikos Elkins MD Medicines: Monitored Anesthesia Care, See the Anesthesianote for documentation of the administeredmedications Complications: No immediate complications. Procedure: After I obtained informed consent, the scope was passed under direct vision. Throughout the procedure, the patient's blood pressure, pulse,and oxygen saturations were monitoredcontinuously.The Colonoscope was introduced through the anus and advanced to the cecum, identified by appendiceal orifice and ileocecal valve. The colonoscopy was performed without difficulty. The patienttolerated the procedure well. The quality of the bowel preparation was evaluated using the BBPS (Reddell Bowel Preparation Scale) with scores of: RightColon = 2 (minor amount of residual staining, small fragments of stool and/or opaque liquid, butmucosa seen well), Transverse Colon = 3 (entire mucosaseen well with no residual staining, small fragmentsof stool or opaque liquid) and Left Colon = 2 (minor amount of residual staining, small fragments of stool and/or opaque liquid, but mucosa seenwell). The total BBPS score equals 7. The quality of the bowel preparation was good. Findings: The digital rectal exam was normal. The colonoscope was advanced into the cecum, identified by the appendiceal orifice and the IC valve. Entire colonic mucosa was examinedcarefully with help of Endocuff vision (distal attachment) during withdrawal to look for polyps. Retroflexion in the right colon was performed. A 3 mm polyp was found in the splenic flexure.The polyp was sessile. The polyp was removed with a jumbo cold forceps. Resection and retrieval were complete. The exam was otherwise without abnormality ondirect and retroflexion views. Procedure Code(s): --- Professional --- 13980, Colonoscopy, flexible; with biopsy, singleor multiple Diagnosis Code(s): --- Professional --- Z12.11, Encounter for screening for malignant neoplasm of colon D12.3, Benign neoplasm of transverse colon(hepatic flexure or splenic flexure) CPT copyright 2020 [employer]. All rights reserved. The codes documented in this report are preliminary and upon shipping/receiving manager reviewmay be revised to meet current compliance requirements. MD Stan Ye MD 12/02/2024 1:45:55 PM This report has been signed electronically.Stan Serrano MD Number of Addenda: 0 Note Initiated On: 12/02/2024 12:58 PM Scope Withdrawal Time: 0 hours 10 minutes 8 seconds Scope In: 1:28:40 PM Scope Out: 1:42:15 PM [facility] - [address] [place], [place] [id number] IMPRESSION: - One 3 mm polyp at the splenic flexure, removed with a jumbo cold forceps. Resected andretrieved. Recommendation: - Discharge patient to home (with escort). - Resume previous diet. - Continue present medications. - Await pathology results. - Repeat colonoscopy in 7-10 years forsurveillance based on pathology results. - The findings and recommendations were discussed with the patient. us Stan Serrano MD GI~PROCEDURE ORDERABLES Final Re sult * Tissue exam (12/02/2024 1:40 PM EDT) Final Diagnosis A. Splenic flexure polyp, polypectomy: Benign colonic mucosa with lymphoid aggregate. Negative for adenomatous changes. 12/04/2024 7:[address] [facility] at 0753 EDT Gross Description A. Colon, polyp splenic flexure: Received in formalin are 2 irregular fenton soft tissue fragments measuring 0.1 cm and 0.2 cm in greatest dimension which are submitted in toto in 1 cassette. 12/04/2024 7:[address] [facility] Disclaimer The technical components of this case were performed at [facility], [address] [place] [address], CLIA ID Number-[id number] 12/04/2024 7:[address] [facility] Tissue Colon structure / Unknown 12/02/2024 1:40 PM EDT 12/03/2024 7:39 AM EDT Stan Serrano MD LAB PATHOLOGY ORDERABLES Final R esult [facility] [place] Reg. #: [id number] [place] [address], * POCT Hemoglobin (12/02/2024 11:51 AM EDT) Pathologist [facility] Hemoglobin 11.0 Blood 12/02/2024 11:5 1 AM EDT Jermaine Graf MD LAB POINT OF CARE TEST DO CKED DEVICE ORDERABLES Final Result * HIV 1,2 antibody, p24 antigen with reflex to differentiation (10/08/2024 1:45 PM EDT) Pathologist [facility] HIV Combo AB/AG Negative Negative LAB CHEMISTRY METHOD 10/08/2024 7:[address] [facility] Blood Venous blood specimen / Unknown Venipuncture / Unknown 10/08/2024 1:45 PM EDT 10/08/2024 1:[address] [facility] - 10/08/2024 7:15 PM EDT This assay is a 4th generation assay allowing for earlier detection of HIV infection by detecting the presence of the HIV-1 p24 antigen as well as the traditional antibodies to HIV type 1 (including group O) and type 2. Use of a 4th generation assay is the current CDC recommendation for HIV screening. Nikos Elkins MD LAB BLOOD ORDERABLES Final Resu lt [facility] [address] [place] [address], * (ABNORMAL) CBC auto differential (10/08/2024 1:45 PM EDT) WBC 6.6 4.0 - 10.5 K/mcL LAB HEMETOLOGY METHOD 10/08/2024 6:[address] [facility] RBC 3.95(L) 4.20 - 5.40 M/mcL LAB HEMETOLOGY METHOD 10/08/2024 6:[address] [facility] Hemoglobin 12.2(L) 12.5 - 16.0 g/dL LAB HEMETOLOGY METHOD 10/08/2024 6:[address] [facility] Hematocrit 37.2 37.0 - 47.0 % LAB HEMETOLOGY METHOD 10/08/2024 6:[address] [facility] MCV 94.2 78.0 - 100.0 FL LAB HEMETOLOGY METHOD 10/08/2024 6:[address] [facility] MCH 30.9 27.0 - 31.0 pcg LAB HEMETOLOGY METHOD 10/08/2024 6:[address] [facility] MCHC 32.8 32.0 - 36.0 g/dL LAB HEMETOLOGY METHOD 10/08/2024 6:[address] [facility] RDW 12.7 11.5 - 14.0 % LAB HEMETOLOGY METHOD 10/08/2024 6:[address] [facility] Platelets 231 150 - 450 K/mcL LAB HEMETOLOGY METHOD 10/08/2024 6:[address] [facility] MPV 11.0 8.3 - 11.8 FL LAB HEMETOLOGY METHOD 10/08/2024 6:[address] [facility] Neutrophils Relative 56.1 25.0 - 62.0 % LAB HEMETOLOGY METHOD 10/08/2024 6:[address] [facility] Basophils Relative 1.1 0.0 - 2.0 % LAB HEMETOLOGY METHOD 10/08/2024 6:[address] [facility] Eosinophils Relative 1.4 0.0 - 6.0 % LAB HEMETOLOGY METHOD 10/08/2024 6:[address] [facility] Lymphocytes Relative 33.3 20.0 - 48.0 % LAB HEMETOLOGY METHOD 10/08/2024 6:[address] [facility] Monocytes Relative 7.5 2.0 - 12.0 % LAB HEMETOLOGY METHOD 10/08/2024 6:[address] [facility] NRBC 0.0 0.0 - 1.0 % LAB HEMETOLOGY METHOD 10/08/2024 6:[address] [facility] Immature Granulocytes Relative 0.6 0.0 - 1.0 % LAB HEMETOLOGY METHOD 10/08/2024 6:[address] [facility] Immature Granulocytes Absolute 0.04 <0.10 K/mcL LAB HEMETOLOGY METHOD 10/08/2024 6:[address] [facility] Neutrophils Absolute 3.72 1.50 - 7.00 K/mcL LAB HEMETOLOGY METHOD 10/08/2024 6:[address] [facility] Basophils Absolute 0.07 0.00 - 0.20 K/[facility] LAB HEMETOLOGY METHOD 10/08/2024 6:[address] [facility] Eosinophils Absolute 0.09 0.00 - 0.60 K/mcL LAB HEMETOLOGY METHOD 10/08/2024 6:[address] [facility] Lymphocytes Absolute 2.21 1.00 - 5.00 K/[facility] LAB HEMETOLOGY METHOD 10/08/2024 6:[address] [facility] Monocytes Absolute 0.50 0.10 - 1.20 K/[facility] LAB HEMETOLOGY METHOD 10/08/2024 6:[address] [facility] Blood Venous blood specimen / Unknown Venipuncture / Unknown 10/08/2024 1:45 PM EDT 10/08/2024 1:45 PM EDT us Nikos Elkins MD LAB BLOOD ORDERABLES Final Resu lt [facility] [address] [place] [address], * (ABNORMAL) Hepatitis B surface antibody (10/08/2024 1:45 PM EDT) Hepatitis B Surface Ab Positive( A) Negative LAB CHEMISTRY METHOD 10/09/2024 5:34 PM EDT [facility] Hepatitis B Surface Ab Quantitative 26.2 mIU/mL LAB CHEMISTRY METHOD 10/09/2024 5:34 PM EDT [facility] [facility] Blood Venous blood specimen / Unknown Venipuncture / Unknown 10/08/2024 1:45 PM EDT 10/08/2024 1:45 PM EDT us Nikos Elkins MD LAB BLOOD ORDERABLES Final Resu lt [facility] [address] [place] [address], [place] [phone] * Thyroid stimulating hormone (10/08/2024 1:45 PM EDT) TSH 0.89 0.55 - 4.78 mcIU/mL LAB CHEMISTRY METHOD 10/08/2024 6:[address] [facility] Blood Venous blood specimen / Unknown Venipuncture / Unknown 10/08/2024 1:45 PM EDT 10/08/2024 1:45 PM EDT us Nikos Elkins MD LAB BLOOD ORDERABLES Final Resu lt Performing Organization Address [facility]/ZIP Co de Phone Number [facility] [address] [place] [address], [place] [phone] * Hemoglobin A1c (10/08/2024 1:45 PM EDT) Hemoglobin A1C 5.3 <5.7 % LAB CHEMISTRY METHOD 10/08/2024 7:[address] [facility] Mean Bld Glu Estim. 105 mg/dL LAB CHEMISTRY METHOD 10/08/2024 7:[address] [facility] Blood Venous blood specimen / Unknown Venipuncture / Unknown 10/08/2024 1:45 PM EDT 10/08/2024 1:[address] [facility] - 10/08/2024 7:36 PM EDT ADA Guidelines: Increased risk Diabetes Mellitus A1C 5.7 - 6.4% and Fasting Blood Glucose 100 - 125 mg/dl Diabetes Mellitus: A1C >6.5% and Fasting Blood Glucose >125 mg/dl us Nikos Elkins MD LAB BLOOD ORDERABLES Final Resu lt [facility] [address] [place] [address], [place] [phone] * Lipid panel (10/08/2024 1:45 PM EDT) [facility] Signature Cholesterol 169 25 - 200 mg/dL LAB CHEMISTRY METHOD 10/08/2024 7:[address] [facility] Triglycerides 96 See Comment mg/dL LAB CHEMISTRY METHOD 10/08/2024 7:[address] [facility] HDL 63 >60 mg/dL LAB CHEMISTRY METHOD 10/08/2024 7:[address] [facility] LDL Calculated 87 0 - 99 mg/dL LAB CHEMISTRY METHOD 10/08/2024 7:[address] [facility] VLDL Cholesterol Manuel 19.2 mg/dL LAB CHEMISTRY METHOD 10/08/2024 7:[address] [facility] Non HDL Chol. (LDL+VLDL) 106 mg/dL LAB CHEMISTRY METHOD 10/08/2024 7:[address] [facility] Chol/HDL Ratio 2.7 LAB CHEMISTRY METHOD 10/08/2024 7:[address] [facility] Blood Venous blood specimen / Unknown Venipuncture / Unknown 10/08/2024 1:45 PM EDT 10/08/2024 1:[address] [facility] - 10/08/2024 7:15 PM EDT CHOLESTEROL REFERENCE RANGES: <200 mg/dL DESIRABLE 200-240 mg/dL BORDERLINE HIGH >240 mg/dL HIGH TRIGLYCERIDE REFERENCE VALUES: <150 mg/dL DESIRABLE 150-199 mg/dL BORDERLINE HIGH >200 mg/dL HIGH HDL REFERENCE VALUES: >60 mg/dL DESIRABLE <40 mg/dL HIGH RISK LDL Reference Ranges <100 mg/dL Desirable 100 - 129 mg/dL Low Risk 130 - 159 mg/dL Borderline High Risk 160 - 189 mg/dL High Risk >189 mg/dL Very High Risk RISK ASSESSMENT MALE: 1/2 AVERAGE: 3.43 AVERAGE: 4.97 2X AVERAGE: 9.55 3X AVERAGE: 23.39 FEMALE: 1/2 AVERAGE: 3.27 AVERAGE: 4.44 2X AVERAGE: 7.05 3X AVERAGE: 11.04 Nikos Elkins MD LAB BLOOD ORDERABLES Final Resu lt [facility] [address] [place] [address], * (ABNORMAL) Comprehensive metabolic panel (10/08/2024 1:45 PM EDT) Sodium 142 136 - 145 mmol/L LAB CHEMISTRY METHOD 10/08/2024 7:[address] [facility] Potassium 4.4 3.5 - 5.1 mmol/L LAB CHEMISTRY METHOD 10/08/2024 7:[address] [facility] Chloride 105 98 - 107 mmol/L LAB CHEMISTRY METHOD 10/08/2024 7:[address] [facility] CO2 28 20 - 31 mmol/L LAB CHEMISTRY METHOD 10/08/2024 7:[address] [facility] Anion Gap 9 5 - 14 LAB CHEMISTRY METHOD 10/08/2024 7:[address] [facility] Glucose 67(L) 70 - 199 mg/dL LAB CHEMISTRY METHOD 10/08/2024 7:[address] [facility] BUN 13 9 - 23 mg/dL LAB CHEMISTRY METHOD 10/08/2024 7:[address] [facility] Creatinine 0.88 0.55 - 1.02 mg/dL LAB CHEMISTRY METHOD 10/08/2024 7:[address] [facility] eGFR 81 >=60 mL/min/1. 73m2 LAB CHEMISTRY METHOD 10/08/2024 7:[address] [facility] Comment:Calculation based on the Chronic Kidney Disease Epidemiology Collaboration (CKD-EPI) equation refit without adjustment for race. BUN/Creatinine Ratio 14.8 12.0 - 20.0 LAB CHEMISTRY METHOD 10/08/2024 7:[address] [facility] Calcium 9.0 8.7 - 10.4 mg/dL LAB CHEMISTRY METHOD 10/08/2024 7:[address] [facility] AST (SGOT) 25 <34 unit/L LAB CHEMISTRY METHOD 10/08/2024 7:[address] [facility] ALT (SGPT) 28 10 - 49 unit/L LAB CHEMISTRY METHOD 10/08/2024 7:[address] [facility] Alkaline Phosphatase 56 46 - 116 unit/L LAB CHEMISTRY METHOD 10/08/2024 7:[address] [facility] Total Protein 6.4 5.7 - 8.2 g/dL LAB CHEMISTRY METHOD 10/08/2024 7:[address] [facility] Globulin, Total 2.0(L) 2.3 - 3.5 g/dL LAB CHEMISTRY METHOD 10/08/2024 7:[address] [facility] A/G Ratio 2.2(H) 1.0 - 1.7 LAB CHEMISTRY METHOD 10/08/2024 7:[address] [facility] Total Bilirubin 0.4 0.2 - 1.1 mg/dL LAB CHEMISTRY METHOD 10/08/2024 7:[address] [facility] Albumin 4.4 3.2 - 4.8 g/dL LAB CHEMISTRY METHOD 10/08/2024 7:[address] [facility] Blood Venous blood specimen / Unknown Venipuncture / Unknown 10/08/2024 1:45 PM EDT 10/08/2024 1:45 PM EDT us Nikos Elkins MD LAB BLOOD ORDERABLES Final Resu lt [facility] [address] [place] [address], [place] [phone] * ECG 12 lead (10/08/2024 1:37 PM EDT) Nikos Steele MD - 10/08/2024 1:37 PM EDT Sinus rhythm 52 bpm, NV interval 164 ms, QRS 78 ms, QTc 381 ms. Nikos Elkins MD ECG ORDERABLES Final Result * Depression Screening (08/09/2022) Depression Screening abstracted Historical Provider HEALTH MAINTENANCE Final Result * Hepatitis C Screening (04/01/2022) Hepatitis C Screening abstracted Historical Provider HEALTH MAINTENANCE Final Result from Last 3 Months or Most Recently Relevant to Health Maintenance Additional Health Concerns Active Problems Noted Date Diagnosed Date Autogenerated Problem 12/01/2024 Insurance [facility] ([facility]) Advance Directives * Full Code - Default (Latest Code Status on File) Date Activated Date Inactivated Comments 12/02/2024 11:39 AM 12/06/2024 4:14 AM This is ord er is used when code status has not been discussed with the patient, or code status is otherwise unknown/unconfirmed To update the patient's code status, place a code status order. Do not modify or discontinue any currently active code status orders. Care Teams Teletype Telegrapher Relationship Specialty Start Date End Date Nikos Elkins MD [address] [place] [id number] PCP - General Internal Medicine 05/22/24
--- OUTSIDE RECORDS SUMMARY | 2025-01-03 13:34 | XMS_ITS | Clinical Summary ---
Author Organization [facility] Address [address] [place] [address] Care Team Providers Care Qi Specialist Name Role Phone Nikos Elkins MD Primary Care Provider [phone]- [phone] Encounters Date Type Department Care Team Description 10/08/2024 3:30 PM EDT - 10/08/2024 11:59 PM EDT Hospital Encounter [facility] (Ultrasound) [address] [address] Dense breasts, unspecified Discharge Disposition: Home or Self Care 09/18/2024 Procedure Pass [facility] (Ultrasound) 534 [facility], [address] [place] [phone] from Last 3 Months Social History Tobacco Use Types Packs/Day Years Used Date Smoking Tobacco: Never Assessed Comments No Sex and Gender Information Value Date Recorded Sex Assigned at Not on file Legal Sex Female 2:10 PM EST Gender Identity Not on file Sexual Orientation Not on file Last Filed Vital Signs Vital Sign Reading Time Taken Comments Blood Pressure - - Pulse - - Temperature - - Respiratory Rate - - Oxygen Saturation - - Inhaled Oxygen Concentration - - Weight 78.9 kg (174 lb) 03/11/2019 12:00 AM EST Height 170.2 cm (5' 7 ) 03/11/2019 12:00 AM EST Body Mass Index 27.25 03/11/2019 12:00 AM EST Plan of Treatment Health Maintenance Due Date Last Done Comments CT Colonography 1974 Colonoscopy 1974 Colorectal Cancer Screening 1974 FIT-DNA 1974 FIT 1974 FOBT 1974 Hepatitis C Screening 1974 Sigmoidoscopy 1974 Tdap and Td Vaccines Adult 1993 COVID-19 Vaccine (4 - season) 2024 01/27/2021, 04/15/2020, 03/18/2020 Influenza Vaccine (#1) 2024 2, 02/22/2021, 12/26/2020 Pneumococcal Vaccine: 50+ Years (1 of 1 - PCV) 2024 Zoster Vaccines (1 of 2) 2024 Mammogram 07/22/2025 07/22/2024 Annual Physical Exam 10/08/2025 10/08/2024, 02/06/2024, 08/28/2023, Additional history exists HIB Vaccines Aged Out No longer eligi ble based on patient's age to complete this topic HPV Vaccines (No Doses Required) Completed Hepatitis A Vaccines Aged Out No long er eligible based on patient's age to complete this topic IPV Vaccines Aged Out No longer eligi ble based on patient's age to complete this topic Meningococcal Vaccine Aged Out No angle han eligible based on patient's age to complete this topic Pneumococcal Vaccine: Peds (0 to 5 Yrs) and At-Risk Pts (6 to 49 Yrs) Aged Out No longer eligible based on patient's age to complete this topic RSV <20 Months Aged Out No longer steffi gible based on patient's age to complete this topic Procedures Procedure Name Priority Date/Time Associated Diagnosis Comments US BREAST COMPLETE DENSE BILATERAL Routine 10/08/2024 4:00 PM EDT Dense breasts, unspecified MG BREAST SCREENING TOMOSYNTHESIS BILATERAL Routine 07/22/2024 2:32 PM EDT Screening mammogram, encounter for from Last 3 Months or Most Recently Relevant to Health Maintenance Results * US BREAST COMPLETE DENSE BILATERAL [...] distortion or suspicious calcification. Procedure Note Nikos Gr, DO - 10/09/2024 PROCEDURE: US BREAST COMPLETE DENSE BILATERAL CLINICAL INFORMATION:Dense breasts, unspecified, dense COMPARISON: Most recent 07/22/2024, dating back to 2018 PROTOCOL: Grayscale imaging of all four quadrants [...] MD IMG US PROCEDURES Final Re sult * MG BREAST SCREENING TOMOSYNTHESIS BILATERAL (07/22/2024 [...] evaluation. Narrative 07/23/2024 4:15 PM EDT EXAM: MG BREAST SCREENING TOMOSYNTHESIS BILATERAL CLINICAL [...] RECOMMENDATION:Follow-up in 12 months BIRADS:2, Benign Tyrer Cuzijud (TC) 8 model lifetime breast cancer risk [...] or greater, they will be contacted by [facility] navigator to facilitate an ambulatory referral to breast surgery forformal breast risk evaluation. us Nikos Reaves MD IMG BI PROCEDURES Final Re sult from Last 3 Months or Most Recently Relevant to Health Maintenance Insurance [facility] Care Teams Qi Specialist Relationship Specialty Start Date End Date Nikos Elkins MD [address] [place] [id number] PCP - General 03/11/19
--- OUTSIDE RECORDS SUMMARY | 2025-01-03 13:34 | XMS_ITS | Encounter Summary ---
Author Organization [facility] Address [address] [place] [address] Care Team Providers Care Manufacturing Engineering Intern Name Role Phone Nikos Elkins MD Primary Care Provider +- [phone] Encounter Details Date Type Department Care Team (Late st Contact Info) Description 06/17/2024 Ancillary Orders [facility] Radiology, [facility] (Diag Rad) [address] [place] [address] ProviderGino MD [address] [place] [address] Social History Tobacco Use Types Packs/Day Years [...] Results * MG TRANSFER OF OUTSIDE FILMS (08/12/2020 12:00 AM EDT) Narrative IMAGING - 06/17/2024 7:35 AM EDT This order has been auto-finalized and does not contain a result. us Gino Provider MD [facility] BI PROCEDURES Final Resu lt IMAGING documented in this encounter Visit Diagnoses Not on filedocumented in this encounter Care Teams Manufacturing Engineering Intern Relationship Specialty Start Date End Date Nikos Elkins MD [facility] [address] [place] [address] PCP - General 03/11/19 documented as of this encounter
== END 2025-01-03 12:46 | disposition home or self-care (01) ==
LOC: HO.HGI 12:01
PROVIDERS: PCP Student in an Organized Health Care Education/Training Program; Visit Provider Nurse Practitioner Family
DX: K59.04 Chronic idiopathic constipation (principal); K58.1 Irritable bowel syndrome with constipation
CPT/HCPCS: 99203